=== PATIENT | female | born 1955 | race Caucasian/White ===

== ENCOUNTER 2017-07-15 15:57 | Inpatient (IN) | payer SELFPAY, OTHER ==
[2017-07-15] MEDS ORDERED: Ondansetron PF 4 MG/2 ML Vial IVP PRN (16:26)
[2017-07-15] MEDS ORDERED: Acetaminophen 325 MG TAB PO PRN (16:26)
[2017-07-15 16:46] VITALS: BMI 30.4
[2017-07-15] MEDS: Atorvastatin Calcium 40 MG TAB PO SCH (21:22)
[2017-07-15] MEDS: Enoxaparin Sodium 80 MG/0.8 ML SYRINGE SC SCH (21:23)
[2017-07-15] MEDS: Furosemide 40 MG TAB PO SCH (21:23)
--- NOTE | 2017-07-15 22:48 | HP-2 ---
DATE OF ADMISSION: 07/15/2017 Patient is seen at 1632. CODE STATUS: FULL. PRIMARY CARE PHYSICIAN: Dereje pastrana, none. ATTENDING PHYSICIAN: Dr. Wright. RESIDENT: Dr. Brittany Garcia, PGY3 HISTORIAN: Patient. CHIEF COMPLAINT: "Royston out of order." HISTORY OF PRESENT ILLNESS: This is a 62-year-old white female with past medical history significant for a recent diagnosis of CHF, right lower extremity DVT, PE, and hypertension who presents with a 1-day history of feeling poorly. The patient cannot tell me exactly how she was feeling, however , that she felt "out of order." The patient states that she has been taking Lasix with her potassium. She reports that she has been feeling slightly dry, so she has reduced her Lasix from 40 mg daily, which she was prescribed to 20 mg daily and at times not taking it. She also reports that she has been taking varying amounts of her potassium supplement that they gave her with her Lasix. She then presented to the [facility] ER who checked her labs and found her to have potassium of greater than 9. She was promptly administered D50 as well as insulin to reduce the level. Patient reports that prior to her discharge to this facility, she had a potassium of 5.3; however, we do not have access to these records. With regard to her CHF and recent diagnosis of PE, the patient states that she was hospitalized 2 weeks ago at the [facility] where she was diagnosed with CHF with an EF of less than 10% with a transesophageal echocardiogram. She also was diagnosed with a right lower extremity DVT and PE. She is currently taking Lovenox 80 mg twice a day for her PE. She states that she is only taking her Lasix for her CHF. She disagreed with the care there and states that she was discharged with a handful of medications including several different beta blockers and amiodarone, none of which she is currently taking. She states that she has set up an appointment to follow up with a jewel supervisor since discharge from that hospital. She states that she was diuresed about 20 pounds during that hospitalization. PAST MEDICAL HISTORY: 1. Congestive heart failure with an EF of less than 10%, diagnosed 2 weeks ago via [facility]. 2. Possible clots in ventricles? per patient 3. DVT right lower extremity. 4. Pulmonary embolism. 5. Hypertension. 6. Right shoulder dislocation in 2016. PAST SURGICAL HISTORY: Cardiac catheterization 2 weeks ago and AUDREY. ALLERGIES: No known drug allergies. MEDICATIONS: 1. Lasix 40 mg p.o. daily; however, the patient not taking at this dose. 2. Lovenox 80 mg subcutaneously b.i.d. 3. Potassium 20 mEq. The patient has been taking this in varying doses. FAMILY HISTORY: Noncontributory. SOCIAL HISTORY: Patient states that she smoked socially for a few years during college; however, has not smoked since. She denies any alcohol or drug use. She is unemployed. She is not , does not have any children. She states that she has an apartment in the [facility] area. She also has an advocate, her name is Angy Laws. Patient also notes that she has home health. REVIEW OF SYSTEMS: Ten-point review of systems was conducted. Pertinent positives are mentioned in the HPI, all others are negative. PHYSICAL EXAMINATION: VITAL SIGNS: Blood pressure 149/118, pulse 105, respirations 22, T-max 96.8, pulse ox 98% on room air, current weight 191 pounds. GENERAL: The patient is alert and oriented x4. She is well-developed, well- nourished, appropriately interactive during the interview and exam. EYES: Pupils are equally round and reactive. Extraocular muscles are intact. Conjunctivae within normal limits. Oropharynx moist without erythema. NECK: Supple, no lymphadenopathy, no thyromegaly. CARDIOVASCULAR: Regular rate and rhythm, no murmurs, gallops, clicks or rubs. Pedal pulses unable to palpate secondary to massive edema. RESPIRATIONS: Normal effort, no retractions. SKIN: Warm and dry, free of cyanosis. Lower extremities have some evidence of venous stasis lesions on her legs. ABDOMEN: Soft, nontender to palpation. Bowel sounds present. EXTREMITIES: No clubbing, cyanosis, 3+ pitting edema in bilateral lower extremities. MUSCULOSKELETAL: Full range of motion of all 4 extremities, ambulatory. NEUROLOGIC: No focal deficits. PSYCHIATRIC: Appropriate. LABORATORY DATA: From [facility]: White count 8.8, hemoglobin 12.8, hematocrit 40.1, platelets 349, sodium 127, potassium of greater than 9, chloride 110, bicarbonate 19, BUN 36, creatinine 0.7, glucose 117, albumin 3.4, total protein 7.4, AST 156, ALT 189, alkaline phosphatase 60, BNP of 2610. Troponin is 0.18, CK-MB of 2.8. EKG showed left axis deviation. T-wave peaking of V2-V4 rate of 102. ASSESSMENT AND PLAN: This is a 62-year-old female with: 1. Severe hyperkalemia, we will admit her to the telemetry unit. We will order a stat recheck of her potassium and EKG. We will observe her on telemetry overnight given her peak T waves and severe hyperkalemia of greater than 9. I discussed with her not taking potassium with every Lasix dose and that we will need to have a long discussion tomorrow about not readjusting her medications on her own without proper medical supervision. 2. Pulmonary embolus. I have requested records from [facility]. We will continue on her therapeutic Lovenox. 3. Congestive heart failure with reported fraction of 10%. She is not currently in exacerbation. I have started her on some Lasix for lower extremity swelling. She states that she has reduced and stopped the amount of Lasix she was taking. I have also started her on an HAYDER inhibitor, beta mark and statin. Patient states that she was discharged on these medications ; however, has not been taking them and she refuses to take them. She plans on following up with a jewel supervisor that she has found on her own accord. Patient has already told me that she will be refusing some of her medications during her stay. 4. Hyponatremia. The patient is not clinically symptomatic from hyponatremia. We will recheck this on a BMP, likely some lab derangements from prior severely elevated potassium. 5. Elevated liver function tests. We will have patient to obtain an outpatient followup for this potentially including a hepatitis panel and right upper quadrant ultrasound. 6. Deep vein thrombosis prophylaxis. The patient already has DVT, PE, we will continue her therapeutic Lovenox. DISPOSITION AND LENGTH OF STAY: One to two days. Symptomatic medications will be provided. History and physical exam as well as management was discussed with Dr. Wright. NILAY
[2017-07-15 22:57] LABS: ALT (SGPT) 174 U/L (8-55); AST (SGOT) 102 U/L (5-34); Albumin 2.9 g/dL (3.4-4.8); Alkaline Phosphatase 68 U/L (40-150); Anion Gap 13 mmol/L (10-20); BUN (Urea Nitrogen) 23 mg/dL (9.8-20.1); Bilirubin, Total 1.9 mg/dL (0.2-1.2); Calc. Creatinine Clearance 93 mL/min (70-130); Calcium 9.1 mg/dL (7.8-10.44); Carbon Dioxide 20 mmol/L (23-31); Chloride 107 mmol/L (98-107); Estimated GFR-MDRD 67; Glucose 129 mg/dL (80-115); Potassium 5.2 mmol/L (3.5-5.1); Protein, Total 6.9 g/dL (6.0-8.3); Sodium 135 mmol/L (136-145)
[2017-07-16] MEDS ORDERED: Furosemide 40 MG/4 ML VIAL SLOW IVP SCH (06:00)
--- NOTE | 2017-07-16 08:57 | PDOC.FM ---
- Subjective Subjective: Patient doing well this AM. No significant overnight events. She feels tired this morning but is cooperative and willing to get blood drawn to evaluate potassium level. - Objective MAR Reviewed: Yes Vital Signs & Weight: Vital Signs (12 hours) Temp Pulse Resp BP Pulse Ox 07/16/17 04:00 98.1 F 89 22 H 144/107 H 95 07/16/17 00:22 98.1 F 101 H 20 145/92 H 94 L 07/16/17 00:00 98.1 F 102 H 93 L Weight Weight 767.478 kg I&O: 07/15/17 07/16/17 07/17/17 06:59 06:59 06:59 Intake Total 240 Output Total 650 Balance -410 Result Diagrams: 07/15/17 22:05 EKG Reviewed by me: Yes Radiology Reviewed by me: Yes <Odalys Veras - Last Filed: 07/16/17 08:55> - Objective Vital Signs & Weight: Vital Signs (12 hours) Temp Pulse Resp BP Pulse Ox 07/16/17 07:50 98.1 F 92 20 138/99 H 97 07/16/17 04:00 98.1 F 89 22 H 144/107 H 95 07/16/17 00:22 98.1 F 101 H 20 145/92 H 94 L 07/16/17 00:00 98.1 F 102 H 93 L Weight Weight 767.478 kg I&O: 07/15/17 07/16/17 07/17/17 06:59 06:59 06:59 Intake Total 240 Output Total 650 Balance -410 Result Diagrams: 07/16/17 08:40 <Leobardo Mcguire - Last Filed: 07/16/17 11:26> Phys Exam - Physical Examination Constitutional: NAD HEENT: moist MMs Neck: supple Respiratory: no wheezing mild bibasilar rales Cardiovascular: RRR Gastrointestinal: soft, positive bowel sounds 2+ pitting edema up to level of knee Neurological: non-focal Psychiatric: A&O x 3 Skin: no rash <Odalys Veras - Last Filed: 07/16/17 08:55> Dx/Plan (1) Acute hyperkalemia Code(s): E87.5 - HYPERKALEMIA Status: Acute (2) CHF (congestive heart failure) Code(s): I50.9 - HEART FAILURE, UNSPECIFIED Status: Chronic QualifierTitle: Congestive heart failure type: systolic (3) Deep vein thrombosis (DVT) of distal vein of right lower extremity Code(s): I82.4Z1 - AC EMBLSM AND THOMBOS UNSP DEEP VEINS OF R DIST LOW EXTRM Status: Acute (4) Pulmonary embolism Code(s): I26.99 - OTHER PULMONARY EMBOLISM WITHOUT ACUTE COR PULMONALE Status : Acute (5) HTN (hypertension) Code(s): I10 - ESSENTIAL (PRIMARY) HYPERTENSION Status: Chronic - Plan Plan: 1. Severe hyperkalemia - Transfered from outside ER - Given insulin and D5 - Potassium as of 22:00 last night was 5.2 - Repeat AM potassium pending - EKG yesterday showed peaked t waves - 4 beats of v-tach overnight - Repeat EKG this AM 2. CHF with EF <10 - No evidence of acute exacerbation - Patient refusing to be treated for CHF - She is on lasix, lisinopril, and coreg 3. DVT of RLE - On therapeutic lovenox - Diagnosed several weeks ago 4. Pulmonary embolism - On therapeutic lovenox - Diagnosed several weeks ago 5. HTN - Continue home medications Dispo: Stable. Home today if K+ stable and no EKG changes. <Odalys Veras - Last Filed: 07/16/17 08:55> Attending Addendum - Attending Addendum I personally evaluated the patient and discussed the management with Dr. Veras. I agree with the History, Examination, Assessment and Plan documented above with any addition or exceptions noted below. Pt is doing well this morning. K levels have returned to normal. We have reviewed her EKG, T waves improved, no sign of worsening EKG with hyperkalemia, p waves present, QRS stable, no sinusoidal wave pattern. On conversation, pt. is dyspneic on conversation, suggestive of [facility] Class IV CHF. Plan is to obtain records from [place] to confirm prior findings, Cardiology consultation and CHF clinic referral, establish PCP locally to monitor.. Pt has made it clear that she wants to follow up with her line analyst regarding her CHF but is now willing to consider local care for now. <Leobardo Mcguire - Last Filed: 07/16/17 11:26>
[2017-07-16] MEDS ORDERED: Aspirin 81 mg Enteric Coated Tablet PO SCH (09:00)
[2017-07-16] MEDS ORDERED: Enoxaparin Sodium 40 MG/0.4 ML SYRINGE SC SCH (09:00)
[2017-07-16 09:33] LABS: Anion Gap 15 mmol/L (10-20); BUN (Urea Nitrogen) 22 mg/dL (9.8-20.1); Calc. Creatinine Clearance 832 mL/min (70-130); Carbon Dioxide 23 mmol/L (23-31); Chloride 107 mmol/L (98-107); Estimated GFR-MDRD 67; Glucose 124 mg/dL (80-115); Potassium 4.5 mmol/L (3.5-5.1); Sodium 140 mmol/L (136-145)
[2017-07-16] MEDS: Lisinopril 2.5 MG TAB PO SCH (11:44)
[2017-07-16] MEDS: Carvedilol 3.125 MG TAB PO SCH ×2 (11:45→17:58)
[2017-07-16] MEDS: Enoxaparin Sodium 80 MG/0.8 ML SYRINGE SC SCH ×2 (11:46→20:57)
[2017-07-16] MEDS: Furosemide 40 MG TAB PO SCH (11:47)
--- NOTE | 2017-07-16 20:22 | CON ---
DATE OF CONSULTATION: 07/16/2017 INDICATION FOR CONSULTATION: A 62-year-old female with congestive heart failure exacerbation. HISTORY OF PRESENT ILLNESS: This very unfortunate 62-year-old female who likely was diagnosed with cardiomyopathy 5 years ago and was seen in [facility], was advised to undergo an AICD implant at that time and refused to do so, and then did not follow up and then was released from their practice. She was recently in [place] apparently when in hotel for some type of event and noticed that she became increasingly short of breath and lower extremity edema and was taken to the emergency room by ambulance and workup at that time showed that she had bilateral pulmonary emboli with a right upper and lower lobe arterial emboli which had been extending into the upper and middle lobes. Also, she had a small left nonocclusive pulmonary emboli in the superior lingular left upper lobe branch. At that time, echocardiogram showed an ejection fraction of approximately 10% with significant dilatation of all four chambers. She also had a mobile mass in the right atrium at 3.4 x 1.4 cm with dilated IVC and elevated pulmonary artery pressures, pulmonary hypertension with a right ventricular systolic pressure 60 mmHg, and severe mitral valve regurgitation. Approximately 4 days later, she underwent transesophageal echocardiogram which showed 3 clots in the left ventricle, the largest up to 1 x 1.4 cm. She also had no evidence of left atrial thrombus and no evidence of clot in the right atrium and presently this is either dissolved or had been transferred to the pulmonary area. She had a cardiac catheterization which showed normal coronary arteries. She was given a LifeVest , but she refused to wear saying it weighs too much and she has been told the indications for the LifeVest and the consequences of what could happen if she did not wear the Vest. She also was given multiple medications on discharge, which she was not taking. She was discharged on Lasix, Bystolic, amiodarone, aspirin, Lovenox, losartan, and potassium. She has refused to take Xarelto. At that time she was seen in the [facility] Emergency Room. She had been taking Lasix, Lovenox, and potassium. She was not taking losartan, nor amiodarone, nor Bystolic. At this time, she appears to obviously has CHF exacerbation. Her BNP was significantly elevated at almost 7000 and she has severe lower extremity edema and obviously has dyspnea on any kind of minimal exertion, even trying to speak she becomes more short of breath. She has been noncompliant with medications, noncompliant with followups, and has refused to take the medical therapy that has been offered. She does not have a primary care physician nor does she have a mine safety director. She had said that she consider seeing a mine safety director up in [place] who may do some type of alternative medical treatment for her cardiomyopathy. PAST MEDICAL HISTORY: Significant for congestive heart failure, history of pneumonia, DVT. She has had these left atrial and left ventricular thrombus which is noted as above. She has had a right popliteal DVT. Otherwise, she has had no significant operations or illnesses. SOCIAL HISTORY: She is single. She has no children. She has no alcohol or tobacco abuse. FAMILY HISTORY: Noncontributory. ALLERGIES: None. MEDICATIONS: At this time includes atorvastatin 40 mg a day, Coreg 3.125 mg b.i.d., Lovenox 80 mg subcu, furosemide 40 mg b.i.d., and lisinopril 2.5 mg daily. REVIEW OF SYSTEMS: She wears glasses. She has had shortness of breath and dyspnea on exertion and lower extremity edema. She denies any chest pain. Otherwise, 12-point review of systems is unremarkable. PHYSICAL EXAMINATION: GENERAL: Reveals a middle-aged female. VITAL SIGNS: Blood pressure 130/99, heart rate is 92. She is afebrile, respiratory rate 20. HEENT: Shows head to be normocephalic and atraumatic. Carotid pulses are present. There were no bruits. CHEST: Clear. I did not hear any significant rales, rhonchi, or wheezing at this time. CARDIOVASCULAR: She has an S1 and S2 and second heart sounds appears to be somewhat split. There were no significant murmurs noted. She has somewhat of a slight heat to the left parasternal border. Otherwise, there were no significant abnormalities appreciated. ABDOMEN: Soft and nontender. EXTREMITIES: Showed 3+ lower extremity edema to above the knees and also in the lower sacral area also she has some edema. NEUROLOGIC: The patient appears to be having focal motor deficits. SKIN: Warm and dry. Her EKG shows a sinus rhythm with a left bundle branch block. She does have some what appears to be QT prolongation. At some point in time, she did describe confused, but this in the history of present illness. She did try about 5 years ago, had been placed on Aldactone and it was found apparently unresponsive in the parking lot and presumably may have had sudden cardiac . At that time, she had been resuscitated. She was cooled down in the hospital and at that time it was advised she undergo an implantation of an AICD which she refused to do. IMPRESSION: 1. 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 She will absolutely need to be on Lovenox injections. I did explain to her due to the fact that she has had left ventricular thrombus as well as pulmonary emboli. She will need to be a minimum of anticoagulation for at least 6 months. She does not want to take Xarelto and is continuing to give herself injections. This may not be a good alternative long-term certainly given her severe decrease in left ventricular systolic function. If this is not improved, then I would suggest she will be on lifelong anticoagulation. 2. Pulmonary emboli, these will be dealt with by the primary service. This is most likely a result of her right popliteal deep vein thrombosis to the right atrium and then pulmonary emboli. She is obviously at risk for having further deep vein thrombosis and anticoagulation is in order. She may also need to consider possible IVC filter. 3. History of nonsustained ventricular tachycardia. She had a LifeVest given to her in [place], but she refuses to wear. She has had nonsustained ventricular tachycardia since being in the hospital here. She has had 15 beats of NSVTACH, it may be best to start her back on amiodarone 200 mg a day to see if we can suppress some of the ventricular tachycardia. We would suggest if she be seen by the banana grader. 4. History of a cerebrovascular accident in the past according to the patient, but did not see any indication of this. 5. Some history of recent EKG of long QT. For that I have stopped her Zofran which also can increase her QT and may be causing further ventricular tachycardia or torsades. Overall, she is in a very difficult situation and her group home outlook is not very good especially with a history of having an untreated cardiomyopathy for at least probably 5 years and not being willing to undergo some of the medical treatment as indicated nor does she want to be implanted with a defibrillator. I have explained to her the risk of sudden cardiac and continue to try to treat her medically. She will need to be diuresed and then continue the beta blockers as well as the HAYDER inhibitors and other medications. If she becomes somewhat improved, we can certainly consider starting her on Entresto, but have to hold lisinopril for at least 36 hours. ADDENDUM: The patient is a 62-year-old female. I have reviewed her records from the hospital in [place] from [facility] and I also discussed all the options with this lady about AICD. Total time spent with this patient was approximately 1-1/2 hours going over the details of her illness and the understanding of her problems as well as review of the records. NILAY
[2017-07-16] MEDS: Atorvastatin Calcium 40 MG TAB PO SCH (21:03)
[2017-07-16] MEDS: Amiodarone 200 MG TAB PO SCH (21:04)
--- NOTE | 2017-07-16 21:59 | EKG ---
Test Reason : Blood Pressure : / mmHG Vent. Rate : 095 BPM Atrial Rate : 095 BPM P-R Int : 160 ms QRS Dur : 114 ms QT Int : 400 ms P-R-T Axes : 058 -44 131 degrees QTc Int : 502 ms Normal sinus rhythm Possible Left atrial enlargement Left axis deviation Incomplete left bundle branch block Left ventricular hypertrophy with repolarization abnormality Prolonged QT Abnormal ECG When compared with ECG of 15-JUL-2017 17:46, (Unconfirmed) No significant change was found Confirmed by MELECIO ALVARADO ([id number]) on 07/16/2017 9:58:51 PM Referred By: EITAN-YVETTE Confirmed By:MELECIO ALVARADO
--- NOTE | 2017-07-16 22:01 | EKG ---
Test Reason : ROUTINE Blood Pressure : / mmHG Vent. Rate : 102 BPM Atrial Rate : 102 BPM P-R Int : 156 ms QRS Dur : 114 ms QT Int : 382 ms P-R-T Axes : 057 -48 111 degrees QTc Int : 497 ms Sinus tachycardia Possible Left atrial enlargement Left axis deviation Left ventricular hypertrophy with repolarization abnormality Cannot rule out Septal infarct , age undetermined Abnormal ECG No previous ECGs available Confirmed by MELECIO ALVARADO ([id number]) on 07/16/2017 10:01:19 PM Referred By: Confirmed By:MELECIO ALVARADO
[2017-07-17] MEDS: Furosemide 40 MG/4 ML VIAL SLOW IVP SCH ×2 (06:01→13:28)
--- NOTE | 2017-07-17 07:57 | PDOC.FM ---
- Subjective Subjective: Patient doing well this AM. No significant overnight events. She reports she is diuresing well. She did refuse her medications except lasix and Lisinopril this AM. Patient states that she wants to establish at our clinic, and would essentially like a letter stating she is establishing and we have accepted as patient. - Objective MAR Reviewed: Yes Vital Signs & Weight: Vital Signs (12 hours) Temp Pulse Resp BP Pulse Ox 07/17/17 07:17 97.7 F 76 20 139/94 H 95 07/17/17 04:00 98.5 F 95 18 129/91 H 96 07/17/17 00:00 97.4 F L 103 H 22 H 138/95 H 95 Weight Weight 84.368 kg I&O: 07/16/17 07/17/17 07/18/17 06:59 06:59 06:59 Intake Total 240 740 Output Total 650 1350 Balance -410 -610 Result Diagrams: 07/16/17 08:40 EKG Reviewed by me: Yes Radiology Reviewed by me: Yes <Odalys Veras - Last Filed: 07/17/17 09:21> - Objective Vital Signs & Weight: Weight Weight 80.739 kg Result Diagrams: 07/20/17 04:47 07/20/17 04:47 <Leobardo Mcguire - Last Filed: 08/30/17 15:47> Phys Exam - Physical Examination Constitutional: NAD HEENT: moist MMs Neck: supple Respiratory: no wheezing, clear to auscultation bilateral Cardiovascular: RRR, no significant murmur Gastrointestinal: soft, no distention 2+ pitting edema to level of knees Neurological: non-focal, moves all 4 limbs Psychiatric: A&O x 3 Skin: no rash, cap refill <2 seconds <Odalys Veras - Last Filed: 07/17/17 09:21> Dx/Plan (1) Acute hyperkalemia Code(s): E87.5 - HYPERKALEMIA Status: Acute (2) CHF (congestive heart failure) Code(s): I50.9 - HEART FAILURE, UNSPECIFIED Status: Chronic QualifierTitle: (3) Deep vein thrombosis (DVT) of distal vein of right lower extremity Code(s): I82.4Z1 - AC EMBLSM AND THOMBOS UNSP DEEP VEINS OF R DIST LOW EXTRM Status: Acute (4) Pulmonary embolism Code(s): I26.99 - OTHER PULMONARY EMBOLISM WITHOUT ACUTE COR PULMONALE Status : Acute (5) HTN (hypertension) Code(s): I10 - ESSENTIAL (PRIMARY) HYPERTENSION Status: Chronic - Plan Plan: 1. Severe hyperkalemia, resolved - Transfered from outside ER - Given insulin and D5 and calcium gluconate in outside ER - Potassium improved to 4.5 yesterday - EKG yesterday showed peaked t-waves; repeat EKG improved 2. CHF with EF <10% with left ventricular thrombus - No evidence of acute exacerbation - She is on lasix, lisinopril, and coreg - Cardiology consulted; appreciate recs - Cards discussed AICD with patient at length; patient refuses at this time - Recommend optimizing medical management - Will need 6 months of anticoagulation therapy - Patient wanting to establish at our clinic - Echo this AM per cards 3. DVT of RLE - On therapeutic lovenox - Does not want to take xeralto - Diagnosed several weeks ago 4. Pulmonary embolism - On therapeutic lovenox - Does not want to take xeralto - Diagnosed several weeks ago - May need to consider IVC filter per cards 5. HTN - Continue home medications 6. Non-sustained Vtach - Patient has life vest that she does not use Dispo: Guarded. Anticipate discharge home today if patient not desiring any cardiac interventions. Patient desires to establish at [facility]. <Odalys Veras - Last Filed: 07/17/17 09:21> Attending Addendum - Attending Addendum Date/Time: 08/30/17 [id number] I personally evaluated the patient and discussed the management with Dr. Jones. I agree with the History, Examination, Assessment and Plan documented above with any addition or exceptions noted below. Extensive conversation held with patient discussing rationale for treatment and severity of her condition. Pt. very hesitant to do much more than she's already agreed to. Has an advocate also trying to convince her of the benefit of following current practices. Will consider B-mark therapy and will have Life-vest brought from home. Was seen at [facility] previously with similar recommendations, which she apparently didn't follow. <Leobardo Mcguire - Last Filed: 08/30/17 15:47>
[2017-07-17] MEDS: Lisinopril 2.5 MG TAB PO SCH (09:07)
[2017-07-17] MEDS: Enoxaparin Sodium 80 MG/0.8 ML SYRINGE SC SCH ×2 (09:08→21:52)
[2017-07-17] MEDS: Amiodarone 200 MG TAB PO SCH (09:08)
[2017-07-17] MEDS: Carvedilol 3.125 MG TAB PO SCH ×2 (09:08→17:20)
--- NOTE | 2017-07-17 12:28 | ADD-PRG ---
ADDENDUM This is an unfortunate 62-year-old female. I reviewed her records further from 2012, she had sudden cardiac with associated hypertension and at cardiac catheterization was found to have normal coronary arteries, at that time her left ventricle ejection fraction was 20%-25%. It is now 10%. At that time, she also refused an AICD. Even after sudden cardiac , she has refused to take her medications. At this time, she has also been found to have a thrombus in the left ventricle, thrombus in the right atrium. All four chambers were significantly dilated. She also has had multiple PEs. She has had a DVT noted in the popliteal vein. At this time, she is refusing Xarelto, wants to continue taking Lovenox injections. She has also refused to be started on the amiodarone and also refuses a defibrillator. She was given a LifeVest in [place], which she also refuses to wear. This ia an unfortunate very noncompliant patient, there is very little more that I could do to help this patient if she is unwilling to follow the advice that we are giving her regarding medications and device implantation that may actually prevent further episodes of sudden cardiac , which occurred 5 years ago on 2012. She was seen at [facility] and was evaluated at that time, the cardiac catheterization did show normal coronary arteries reported in the chart, but she remains very obstinate about not taking medication and not proceeding with AICD implant or even to wear the LifeVest. NILAY
[2017-07-17 19:10] LABS: Anion Gap 15 mmol/L (10-20); BUN (Urea Nitrogen) 22 mg/dL (9.8-20.1); Calc. Creatinine Clearance 96 mL/min (70-130); Calcium 8.9 mg/dL (7.8-10.44); Carbon Dioxide 27 mmol/L (23-31); Chloride 102 mmol/L (98-107); Estimated GFR-MDRD 71; Glucose 116 mg/dL (80-115); Sodium 140 mmol/L (136-145)
[2017-07-18 05:52] LABS: Hemoglobin 12.2 g/dL (12.0-16.0); Platelet Count 359 thou/uL (130-400)
[2017-07-18 06:18] LABS: Anion Gap 10 mmol/L (10-20); BUN (Urea Nitrogen) 20 mg/dL (9.8-20.1); Calc. Creatinine Clearance 107 mL/min (70-130); Calcium 8.6 mg/dL (7.8-10.44); Carbon Dioxide 27 mmol/L (23-31); Cardiac Risk 4.3 (Less than 4.5); Chloride 106 mmol/L (98-107); Cholesterol 95 mg/dl (< 200 Desired); Estimated GFR-MDRD 84; Glucose 109 mg/dL (80-115); HDL Cholesterol 22 mg/dL (>60 Neg Risk); LDL Cholesterol, Calculated 61 mg/dL; Potassium 3.8 mmol/L (3.5-5.1); Sodium 139 mmol/L (136-145); Triglycerides 62 mg/dL (Less than 150)
[2017-07-18] MEDS: Enoxaparin Sodium 80 MG/0.8 ML SYRINGE SC SCH (08:08)
[2017-07-18] MEDS: Nebivolol HCl 2.5 MG TAB PO SCH (08:09)
[2017-07-18] MEDS: Lisinopril 2.5 MG TAB PO SCH (08:09)
[2017-07-18] MEDS: Furosemide 20 MG TAB PO SCH ×2 (08:10→14:38)
--- NOTE | 2017-07-18 08:53 | PDOC.FM ---
- Subjective Subjective: Patient doing well this AM. She did have 9 beats of v-tach this morning and has had intermittent episodes of vtach since hospitalization. Dr. Lou discussed need for amiodarone and AICD placement at length with patient. However, patient denies that this conversation ever happened. She continues to refuse medications. She is under the impression that she should stay on IV lasix until she is entirely diuresed. It was explained that we can transition over to PO lasix as we prepare her for d/c home. She requested to personally speak to Dr. Mcguire. - Objective MAR Reviewed: Yes Vital Signs & Weight: Vital Signs (12 hours) Temp Pulse Resp BP BP Pulse Ox 07/18/17 08:09 75 126/83 07/18/17 07:20 97.6 F 75 20 126/83 95 07/18/17 04:00 97.7 F 100 21 H 136/99 H 94 L 07/18/17 00:00 97.6 F 97 20 130/78 94 L Weight Weight 81.556 kg I&O: 07/17/17 07/18/17 07/19/17 06:59 06:59 06:59 Intake Total 740 881 Output Total 1350 5200 Balance -610 -8594 Result Diagrams: 07/18/17 05:18 07/18/17 05:18 EKG Reviewed by me: Yes Radiology Reviewed by me: Yes <Odalys Veras - Last Filed: 07/18/17 11:45> - Objective Vital Signs & Weight: Weight Weight 80.739 kg Result Diagrams: 07/20/17 04:47 07/20/17 04:47 <Leobardo Mcguire - Last Filed: 08/30/17 16:24> Phys Exam - Physical Examination Constitutional: NAD HEENT: moist MMs Neck: supple bibasilar crackles Cardiovascular: RRR, no significant murmur Gastrointestinal: soft, non-tender, positive bowel sounds Musculoskeletal: pulses present 2+ pitting edema to level of knee Neurological: non-focal, moves all 4 limbs Psychiatric: normal affect Skin: cap refill <2 seconds <Odalys Veras - Last Filed: 07/18/17 11:45> Dx/Plan (1) Acute hyperkalemia Code(s): E87.5 - HYPERKALEMIA Status: Acute (2) CHF (congestive heart failure) Code(s): I50.9 - HEART FAILURE, UNSPECIFIED Status: Chronic QualifierTitle: (3) Deep vein thrombosis (DVT) of distal vein of right lower extremity Code(s): I82.4Z1 - AC EMBLSM AND THOMBOS UNSP DEEP VEINS OF R DIST LOW EXTRM Status: Acute (4) Pulmonary embolism Code(s): I26.99 - OTHER PULMONARY EMBOLISM WITHOUT ACUTE COR PULMONALE Status : Acute (5) HTN (hypertension) Code(s): I10 - ESSENTIAL (PRIMARY) HYPERTENSION Status: Chronic - Plan Plan: 1. Severe hyperkalemia, resolved - Transfered from outside ER - Given insulin and D5 and calcium gluconate in outside ER - Potassium 3.8 this AM 2. CHF with EF <10% with left ventricular thrombus - No evidence of acute exacerbation - She is on lasix, lisinopril, and nevibolol - Cardiology consulted; appreciate recs - Cards discussed AICD with patient at length; patient refuses at this time - Recommend optimizing medical management - Will need 6 months of anticoagulation therapy - Patient wanting to establish at our clinic - Echo showed persistent left atrium thrombus per cards - Add 20 mEq K to medication regimen daily 3. DVT of RLE - On therapeutic lovenox - Does not want to take xeralto - Diagnosed several weeks ago 4. Pulmonary embolism - On therapeutic lovenox - Does not want to take xeralto - Diagnosed several weeks ago - May need to consider IVC filter per cards 5. HTN - Continue home medications 6. Non-sustained Vtach - Patient has life vest that she does not use Dispo: Guarded. Anticipate discharge home today on oral medications. <Odalys Veras - Last Filed: 07/18/17 11:45> Attending Addendum - Attending Addendum Date/Time: 08/30/17 4145 I personally evaluated the patient and discussed the management with Dr. Veras. I agree with the History, Examination, Assessment and Plan documented above with any addition or exceptions noted below. Another extensive discussion (45 min) of need for complete care in order to maximize her quality of life and expectancy. V-tach particularly ominous sign and need for antiarrhythmic like amiodarone stressed. Pt. seems to understand now and is willing to try at this point. Also, lifevest value as temporizing measure prior to AICD also stressed. Pt. considering this also. Was supposed to have had it brought but hasn't yet. Also stressed the need for anticoagulation and that Lovenox is not necessarily ideal nor economical as OP. If pt. continues to be intransigent, not much else to offer. She seems to be focused on resolving her pedal edema through IV diuresis. I have repeatedly stressed this will not resolve the issue in isolation and likely she will have some aspect of this permanently. <Leobardo Mcguire - Last Filed: 08/30/17 16:24>
[2017-07-18] MEDS: Oxymetazoline HCl 0.05% ( 15 ML ) NASAL SCH ×2 (14:38→21:03)
[2017-07-19] MEDS: Enoxaparin Sodium 80 MG/0.8 ML SYRINGE SC SCH ×3 (01:55→21:06)
--- NOTE | 2017-07-19 07:08 | PDOC.FM ---
- Subjective Subjective: Patient doing well this AM. She has been non-compliant with medications to include therapeutic lovenox being used for DVT/PE/thrombus in heart. She is refusing to take potassium and would rather get potassium through diet by drinking V8 juice. Nurses report that she is not abiding by fluid restrictions, and they have been unable to accurately monitor I&O's, b/c she is not letting them know when she uses the restroom. The hat has only been emptied once as far as they know. Life vest is in the room, but patient is refusing to wear it. - Objective MAR Reviewed: Yes Vital Signs & Weight: Vital Signs (12 hours) Temp Pulse Resp BP BP Pulse Ox 07/19/17 03:39 97.4 F L 87 135/97 H 96 07/18/17 20:00 98.5 F 101 H 20 131/100 H Weight Weight 81.556 kg I&O: 07/18/17 07/19/17 07/20/17 06:59 06:59 06:59 Intake Total 881 Output Total 5200 Balance -4319 Result Diagrams: 07/18/17 05:18 07/18/17 05:18 EKG Reviewed by me: Yes Radiology Reviewed by me: Yes <Odalys Veras - Last Filed: 07/19/17 07:57> - Objective Vital Signs & Weight: Vital Signs (12 hours) Temp Pulse Resp BP BP Pulse Ox 07/19/17 08:40 98.1 F 99 20 150/101 H 93 L 07/19/17 03:39 97.4 F L 87 135/97 H 96 Weight Weight 80.739 kg I&O: 07/18/17 07/19/17 07/20/17 06:59 06:59 06:59 Intake Total 881 Output Total 5200 Balance -4319 Result Diagrams: 07/19/17 07:32 07/19/17 07:32 <Leobardo Mcguire - Last Filed: 07/19/17 12:19> Phys Exam - Physical Examination Constitutional: NAD HEENT: moist MMs Neck: supple Respiratory: no wheezing Bibasilar crackles Cardiovascular: RRR, no significant murmur Gastrointestinal: soft, no distention 2+ pitting edema to level of knee bilaterally Neurological: non-focal, moves all 4 limbs Psychiatric: A&O x 3 Skin: cap refill <2 seconds <Odalys Veras - Last Filed: 07/19/17 07:57> Dx/Plan (1) Acute hyperkalemia Code(s): E87.5 - HYPERKALEMIA Status: Acute (2) CHF (congestive heart failure) Code(s): I50.9 - HEART FAILURE, UNSPECIFIED Status: Chronic QualifierTitle: Congestive heart failure type: systolic (3) Deep vein thrombosis (DVT) of distal vein of right lower extremity Code(s): I82.4Z1 - AC EMBLSM AND THOMBOS UNSP DEEP VEINS OF R DIST LOW EXTRM Status: Acute (4) Pulmonary embolism Code(s): I26.99 - OTHER PULMONARY EMBOLISM WITHOUT ACUTE COR PULMONALE Status : Acute (5) HTN (hypertension) Code(s): I10 - ESSENTIAL (PRIMARY) HYPERTENSION Status: Chronic - Plan Plan: 1. Severe hyperkalemia, resolved - Transfered from outside ER - Given insulin and D5 and calcium gluconate in outside ER 2. CHF with EF <10% with left ventricular thrombus - She is on lasix, lisinopril, and nevibolol - Cardiology consulted; appreciate recs - Cards discussed AICD with patient at length; patient refuses at this time - Recommend optimizing medical management - Will need 6 months of anticoagulation therapy - Patient wanting to establish at our clinic - Echo showed persistent left atrium thrombus per cards - Add 20 mEq K to medication regimen daily; patient refusing to take - Patient has agreed to take amiodarone after long discussion - Patient refusing to wear life vest - Patient refusing therapeutic lovenox 3. DVT of RLE - On therapeutic lovenox - Does not want to take xeralto - Diagnosed several weeks ago 4. Pulmonary embolism - On therapeutic lovenox - Does not want to take xeralto - Diagnosed several weeks ago - May need to consider IVC filter per cards 5. HTN - Continue home medications 6. Non-sustained Vtach - Patient has life vest that she does not use; she has agreed to have it brought to hospital Dispo: Guarded. Anticipate discharge home today on oral medications. <Odalys Veras - Last Filed: 07/19/17 07:57> Attending Addendum - Attending Addendum I personally evaluated the patient and discussed the management with [ Rito] I agree with the History, Examination, Assessment and Plan documented above with any addition or exceptions noted below. CHF with EF <10%: Patient to continue on Nebivolol, Lisinopril, Lasix, and Amiodarone for treatment of CHF and ventricular tachycardia. Patient refusing potassium supplementation. Will consult security orderly regarding potassium supplementation in diet. Plan for enrollment in CHF outpatient clinic. They can monitor fluid status and potassium level. Patient to be evaluated by inpatient cardiac rehab team. Stressed importance of fluid restriction. Patient did have friend bring Life Vest, but has yet to wear it. Will try to trouble shoot getting around with walker and Life Vest. DVT/PE/Ventricular thrombus: Continue therapeutic lovenox. Will need for a period of at least 6 months. <Leobardo Mcguire - Last Filed: 07/19/17 12:19>
[2017-07-19] MEDS ORDERED: Potassium Chloride 20 MEQ TAB PO SCH (08:00)
[2017-07-19 08:12] LABS: #Basophils 0.1 thou/uL (0.0-0.2); #Eosinphils 0.3 thou/uL (0.0-0.7); #Lymphocytes 1.5 thou/uL (1.20-3.40); #Monocytes 0.6 thou/uL (0.11-0.59); #Neutrophils 5.6 thou/uL (1.40-6.50); %Eosinophils 3.9 % (0.0-10.0); %Lymphocytes 19.1 % (21.0-51.0); %Monocytes 6.7 % (0.0-10.0); %Neutrophils 69.3 % (42.0-75.0); Hemoglobin 12.7 g/dL (12.0-16.0); Mean Corpuscular Hemoglobin 31.7 pg (27.0-31.0); Mean Platelet Volume 6.9 fL (7.4-10.4); Platelet Count 391 thou/uL (130-400); RBC Distribution Width 15.4 % (11.5-14.5); Red Blood Cell (RBC) Count 4.02 mill/uL (4.20-5.40); White Blood Cell (WBC) Count 8.1 thou/uL (4.8-10.8)
[2017-07-19 08:35] LABS: ALT (SGPT) 66 U/L (8-55); AST (SGOT) 26 U/L (5-34); Albumin 2.9 g/dL (3.4-4.8); Alkaline Phosphatase 55 U/L (40-150); Anion Gap 13 mmol/L (10-20); BUN (Urea Nitrogen) 22 mg/dL (9.8-20.1); Bilirubin, Total 1.1 mg/dL (0.2-1.2); Calc. Creatinine Clearance 102 mL/min (70-130); Carbon Dioxide 26 mmol/L (23-31); Chloride 104 mmol/L (98-107); Estimated GFR-MDRD 80; Globulin 3.9 g/dL (2.4-3.5); Glucose 119 mg/dL (80-115); Potassium 4.5 mmol/L (3.5-5.1); Protein, Total 6.8 g/dL (6.0-8.3); Sodium 138 mmol/L (136-145)
[2017-07-19] MEDS: Furosemide 20 MG TAB PO SCH (08:48)
[2017-07-19] MEDS: Lisinopril 2.5 MG TAB PO SCH (08:52)
[2017-07-19] MEDS: Nebivolol HCl 2.5 MG TAB PO SCH (08:53)
[2017-07-19] MEDS: Amiodarone 200 MG TAB PO SCH (08:59)
[2017-07-19] MEDS: Furosemide 40 MG TAB PO SCH (14:24)
[2017-07-19 21:48] LABS: Anion Gap 11 mmol/L (10-20); BUN (Urea Nitrogen) 24 mg/dL (9.8-20.1); Calc. Creatinine Clearance 97 mL/min (70-130); Calcium 9.1 mg/dL (7.8-10.44); Carbon Dioxide 26 mmol/L (23-31); Chloride 105 mmol/L (98-107); Estimated GFR-MDRD 75; Glucose 132 mg/dL (80-115); Potassium 4.7 mmol/L (3.5-5.1); Sodium 137 mmol/L (136-145)
[2017-07-20 05:11] LABS: Hemoglobin 12.3 g/dL (12.0-16.0); Platelet Count 360 thou/uL (130-400)
--- NOTE | 2017-07-20 06:15 | PDOC.FM ---
- Subjective Subjective: Pt reports she is just trying to get up and make sure she will be able to do everything at home. She denies any acute events overnight. After talking with patient it sounds like she is not a fan of taking the amioderone. I discussed with her the need for it and to wear her life vest. She said she did not like the [facility] risks of taking amioderone. She also was wondering about the need for twice daily lovenox. I again discussed due to her clots she will need to take it twice a day. This is a patient who does a lot of research into her care and seems to have her own plan. I have advised her why we have prescribed what we have and why we think they are beneficial for her. I respect wanting to do what the patient is best for her. Be aware pt will not be very compliant with medication regimen likely. - Objective Vital Signs & Weight: Vital Signs (12 hours) Temp Pulse Resp BP Pulse Ox 07/20/17 03:48 97.7 F 90 20 132/98 H 96 07/19/17 19:46 98.1 F 92 18 113/88 96 07/19/17 19:45 98.1 F 92 18 96 Weight Weight 80.739 kg I&O: 07/18/17 07/19/17 07/20/17 06:59 06:59 06:59 Intake Total 881 600 Output Total 5200 400 Balance -4319 200 Result Diagrams: 07/20/17 04:47 07/20/17 04:47 <Rl Trent - Last Filed: 07/20/17 08:56> - Objective Vital Signs & Weight: Vital Signs (12 hours) Temp Pulse Resp BP BP BP Pulse Ox 07/20/17 10:02 91 129/96 H 07/20/17 07:37 96.5 F L 91 18 129/96 H 92 L 07/20/17 03:48 97.7 F 90 20 132/98 H 96 Weight Weight 80.739 kg I&O: 07/19/17 07/20/17 07/21/17 06:59 06:59 06:59 Intake Total 1100 Output Total 1000 Balance 100 Result Diagrams: 07/20/17 04:47 07/20/17 04:47 <Barron Morales - Last Filed: 07/20/17 12:36> Phys Exam - Physical Examination HEENT: PERRLA, moist MMs Neck: no nodes, supple, full ROM Respiratory: no wheezing, no rales bilateral crackles in the bases noted Cardiovascular: RRR, no significant murmur, no rub Gastrointestinal: soft, non-tender, no distention Musculoskeletal: edema present +2 pitting edema. Chronic venostasis in BLE Neurological: non-focal, normal sensation, moves all 4 limbs Psychiatric: normal affect, A&O x 3 Skin: no rash, normal turgor, cap refill <2 seconds <Rl Trent - Last Filed: 07/20/17 08:56> Dx/Plan (1) CHF (congestive heart failure) Code(s): I50.9 - HEART FAILURE, UNSPECIFIED Status: Chronic QualifierTitle: Congestive heart failure type: systolic (2) Pulmonary embolism Code(s): I26.99 - OTHER PULMONARY EMBOLISM WITHOUT ACUTE COR PULMONALE Status : Acute (3) Deep vein thrombosis (DVT) of distal vein of right lower extremity Code(s): I82.4Z1 - AC EMBLSM AND THOMBOS UNSP DEEP VEINS OF R DIST LOW EXTRM Status: Acute (4) HTN (hypertension) Code(s): I10 - ESSENTIAL (PRIMARY) HYPERTENSION Status: Chronic (5) Acute hyperkalemia Code(s): E87.5 - HYPERKALEMIA Status: Resolved - Plan Plan: 1. CHF with EF <10% with left ventricular thrombus - She is on lasix, lisinopril, and nevibolol -Pt did not want to be on coreg. Herself wanted nevibolol - Cardiology consulted; appreciate recs - Cards discussed AICD with patient at length; patient refuses at this time -Cardiac Rehab consulted, will get her set up with outpt managment. - Recommend optimizing medical management - Will need 6 months of anticoagulation therapy - Patient wanting to establish at our clinic - Echo showed persistent left atrium thrombus per cards - Add 20 mEq K to medication regimen daily; patient refusing to take - Patient likely does not want to continue amioderone medication after long discussion this morning. - Patient says she has everything to set up lifevest but is not wearing it at this time. - Patient refusing therapeutic lovenox 2. DVT of RLE - On therapeutic lovenox - Does not want to take xeralto - Diagnosed several weeks ago 3 Pulmonary embolism - On therapeutic lovenox - Does not want to take xeralto - Diagnosed several weeks ago - May need to consider IVC filter per cards 4. HTN - Continue home medications 5 Non-sustained Vtach - Patient has life vest that she does not use; she has agreed to have it brought to hospital 6. Severe hyperkalemia, resolved -K stable on BMP last night -Pt not taking potassium Pill. Dietary consulted to maybe give recs on foods to eat. - Transfered from outside ER - Given insulin and D5 and calcium gluconate in outside ER <Rl Trent - Last Filed: 07/20/17 08:56> Attending Addendum - Attending Addendum I personally evaluated the patient and discussed the management with Dr. Trent. I agree with the History, Examination, Assessment and Plan documented above with any addition or exceptions noted below. Patient admitted with multiple active and acute medical conditions including pulmonary embolism, thrombus in the LA, and multiple runs of Vtach. She has been evaluated by cardiology, and between their team and our team, we have been unable to convince her to opt for maximal medical therapy. She has stopped Amiodarone, despite knowing its indication and the risks of not being on the medication. She reports that she would rather wear her LifeVest that is in the room, but she is yet to put it on. She refuses oral anticoagulation for her multiple clots, and instead wishes to go home on Lovenox injections. We will augment her dose to 1.5mg/kg daily to hopefully increase compliance. We had a very lengthy discussion with patient today about our recommendations regarding her medical care, as well as her desires to decline therapy and why. This conversation occurred with her patient nursing care attendant listening on the cell phone. After discussing that her best option going forward if she declines medication is to wear LifeVest and take Lovenox injections, we have indicated to her that there is no further reason to keep her in the hospital. Patient initially disagreed with discharge as she reports she is unable to "dress myself " and needs things set up for her outpatient. I indicated to her that CM has been involved in her care and that we were in the process of setting up outpatient HF clinic as well as potential HH therapy, but those would not hinder her discharge. Her patient nursing care attendant was on board with our plan and helped convince the patient that he and other individuals would be able to care for her in the next few days until those ancillary services can be set up. She at that time agreed to be discharged and further mgmt as outpatient. Of note, patient has been observed by multiple providers as able to ambulate around the room without difficulty. <Barron Morales - Last Filed: 07/20/17 12:36>
[2017-07-20] MEDS: Lisinopril 2.5 MG TAB PO SCH (10:02)
[2017-07-20] MEDS: Nebivolol HCl 2.5 MG TAB PO SCH (10:03)
[2017-07-20] MEDS: Amiodarone 200 MG TAB PO SCH (10:04)
[2017-07-20] MEDS: Furosemide 40 MG TAB PO SCH ×2 (10:06→14:30)
[2017-07-20] MEDS: Enoxaparin Sodium 80 MG/0.8 ML SYRINGE SC SCH (10:12)
[2017-07-20] MEDS ORDERED: Enoxaparin Sodium 120 MG/0.8 ML SYRINGE SC SCH (10:30)
--- NOTE | 2017-07-20 11:17 | PDOC.CTH ---
<AlondraMaryjane - Last Filed: 07/20/17 11:47> Cardiology Progress Note - Subjective The pt seen and examined. No overnight events. No cardiac complaints. She has the LifeVest at bedside, but the battery needs to be charged. She stated she is willing to wear the LifeVest soon as possible so that she can go home - Objective Vital Signs Temp Pulse Resp BP BP BP Pulse Ox 07/20/17 10:02 91 129/96 H 07/20/17 07:37 96.5 F L 91 18 129/96 H 92 L 07/20/17 03:48 97.7 F 90 20 132/98 H 96 Weight 178 lb 07/19/17 07/20/17 07/21/17 06:59 06:59 06:59 Intake Total 1100 Output Total 1000 Balance 100 - Physical Examination General/Neuro: alert & oriented x3 Neck: no JVD present Lungs: CTA Heart: RRR Abdomen: soft Extremities: other: (2-3 pitting bLE edema) - Labs Result Diagrams: 07/20/17 04:47 07/20/17 04:47 - Assessment/Plan 1. Non-ischemic CMY - EF 10-12%; The pt administered HAYDER, BBlocker, and Lovenox today; The pt voiced she would like to wear LifeVest which is at bedside and the battery need to be charged; 2. Chronic systolic HF - Per the pt's report, her legs are less swelling this AM ; on Lasix 80mg PO, BBlocker and HAYDER; cont. monitor 3. Thrombus in Lt ventricular, Hx of PEs, Bilat. popleteal DVTs - On lovenox; the pt refused Xarelto; consider IVC filter if the pt agree? ; cont. monitor 4. Hx of NSVT and hx of cardiac arrest in 2012 - The pt refused to take amiodarone this AM; Lifevest at bedside; she needs LifeVest Education (Thank you very much for CHF service for your help!) 5. HTN - stable with current medication; cont. monitor 6. non-complaint medication regiment MAR reviewed Review of Systems - Review of Systems Constitutional: reports: no symptoms reported EENTM: reports: no symptoms reported Respiratory: reports: no symptoms reported Cardiac (ROS): reports: no symptoms reported ABD/GI: reports: no symptoms reported : reports: no symptoms reported <Chaparrita Lou - Last Filed: 07/20/17 17:35> Cardiology Progress Note - Objective Vital Signs Temp Pulse Resp BP BP Pulse Ox 07/20/17 16:07 98.1 F 87 20 126/85 95 07/20/17 11:52 98 20 134/86 94 L 07/20/17 10:02 91 129/96 H 07/20/17 07:37 96.5 F L 91 18 129/96 H 92 L Weight 178 lb 07/19/17 07/20/17 07/21/17 06:59 06:59 06:59 Intake Total 1100 Output Total 1000 Balance 100 - Labs Result Diagrams: 07/20/17 04:47 07/20/17 04:47 - Assessment/Plan Pt. seen and eval. by me. The Life-vest sales representative metals is in the room at this time also. She seems agreeable to wear the vest. She is still not agreeable with my medication suggestions. It would be better for her to take coreg instead of Bystolic due to the interaction of Bystolic with the Amiodarone. I agree with the A/P by the STRAIGHT LINE EDGER. Chest clear, RRR. No episodes of NSVtach today but yesterday she had a 6 beat run. She has a very poor [place] [facility] prognosis. I have little more to offer her if she is noncompliant with my suggestions. I will sign off. If she is not willing to cooperate with my medical suggestions in regards to her cardiomyopathy and CHF then I suggest she follow up with someone that she feels will be more in line with her own suggestions. I will sign off.
[2017-07-20 16:35] VITALS: BP 126/85; TEMP 98.1
[2017-07-21] MEDS ORDERED: Enoxaparin Sodium 120 MG/0.8 ML SYRINGE SC SCH (09:00)
--- NOTE | 2017-07-21 14:49 | DIS-2 ---
DATE OF ADMISSION: 07/15/2017 DATE OF DISCHARGE: 07/20/2017 ADMITTING ATTENDING: eMlvin Wright M.D. DISCHARGE ATTENDING: Barron Morales MD CONSULTS: Cardiology, Dr. Lou. PROCEDURES: None. IMAGING: She did get an echocardiogram, which showed ejection fraction of 10% to 12%. Left ventricu lar size severely increased left ventricular thrombus noted at the apex 1.3 cm attached apex, but karl ewhat mobile. Left atrium is moderately to severely dilated, moderately enlarged right atrium size, severe mitral regurg present, and moderate to severe tricuspid regurg. PRIMARY DIAGNOSES: 1. Chronic heart failure with ejection fraction of 10% to 12% with left ventricular thrombosis. 2. Deep venous thrombosis of right lower extremity. 3. Pulmonary embolism. 4. Hypertension. 5. Nonsustained ventricular tachycardia. 6. Severe hyperkalemia. DISCHARGE MEDICATIONS: Include: 1. Tylenol 650 mg every 4 hours as needed. 2. Lovenox 120 mg subcutaneously once daily. 3. Furosemide (Lasix) 80 mg oral at 9:00 a.m. and 1400. 4. Lisinopril 2.5 mg oral daily. 5. Nebivolol 2.5 mg oral daily. 6. Potassium chloride 20 mEq twice daily. DISCONTINUED MEDICATIONS: Lasix 40 mg twice daily and Lovenox 80 mg every 12 hours was discontinued as well. HISTORY OF PRESENT ILLNESS AND BRIEF HOSPITAL COURSE: This is a 62-year-old female with a past medic al history of recent diagnosis of CHF, right lower extremity DVT and PE, who came in that she felt ou t of order. She has been recently taking Lasix 40 mg daily. She also reports that she has been taki ng very much of her potassium supplements they gave her, had not been taking it lately. She went to [facility] ER, she was found to have potassium of 9. She was admitted and administered D50 and given in sulin as well to reduce the level. She was also given calcium gluconate, but when she got here, her potassium was 5.3. Over the course of the next few days, her potassium was drop to 4.5 the next day on the 8th. From that her potassium would be fine and ranging in the 4s. During this time, we get t he echocardiogram report, which you can see above, which shows the bad ejection fraction. We at this time consulted Dr. Lou, who at this time discussed with her about needing anticoagulation for the t hrombus found in her ventricle and for the pulmonary filter. At this time, she discussed with her us ing Xarelto, the patient did not want to take Xarelto, but wanted to inject herself with Lovenox that was the only medication she would take. At this time, we continued lisinopril and the Lasix. We wo uld increase her Lasix dose while here. We wanted to start her on Coreg, but the patient said that s he would rather take nebivolol as her beta mark, so we started her on nebivolol as well. It shoul d be noted that this patient seems to be very intent to her own research and makes her own choices ab out her patient care. It should be noted that she multiple times would refuse medications, would not follow recommendations that were given from us. At one time, we decided for all her multiple clots, she needs to be on b.i.d. dosing and therapeutic Lovenox, but multiple times she refused this. At o ne point, she told me that she wanted to just be on one time a day dosage, we put her on therapeutic dosing one time a day at 120 mg, and then she said that she only wanted to take 80 mg once a day, whi ch was not therapeutic dose. I again fully discussed the risks of doing this with her. Also during this visit of Dr. Lou, she would have multiple episodes of nonsustained V-tach. Dr. Lou discussed with her about the use of amiodarone and had discussions with her as well. She said she did not want to take amiodarone due to the long-term risks and the side effects of amiodarone. Discussed with he r that we are using amiodarone for the short-term and to prevent , she fully understood, but renetta korina "I'm refusing amiodarone at this time." She had already had a LifeVest, but she was not wearing it , discussed with her the need to wear. On the date of discharge, we got her to the charge the LifeVe st and said she would wear it and discussed with her that she needs to wear her LifeVest at all times . Also, when the patient came in with hyperkalemia as reported by outside ER of 9 since then resolve d. She multiple times refused her potassium pills that we put her on since she was on high dose of L asix, refused this and said that she would monitor her potassium on her own and get a diet controlled . It should be noted too that the patient has a patient advocate who multiple times agreed with our plan of care. Again, we gave recommendations to the patient for treatment, multiple treatments that she would refuse. Again, it is her decision to refuse these treatments, but it should be noted that we recommended that she will be on therapeutic dosing of Lovenox and recommended that she take amioda yesi, both of which she refused. On day of discharge, we get her set up with her LifeVest. While lenin camacho was here, she also will have cardiac rehabilitation got set up with and they recommended outpatient cardiac rehabilitation and got [facility] who she would continue to follow up with outpatient. She also was getting set up with home health services, which will be getting set up wit carey the week of discharge. Other than that, there were no abnormalities other than the hyperkalemia on her labs. Most of the times her vital signs were stable. Blood pressure will be elevated at time s, but most times it will be stable after being started on blood pressure medications. At this time, she had home health being set up, had her LifeVest. We had discussed with her plan of care that she wanted and discuss this to the patient spiritual care coordinator and discharge her. DISCHARGE DISPOSITION: Guarded. DISCHARGE LOCATION: Home. ACTIVITIES: Activity as tolerated. DIET: Heart healthy diet. FOLLOWUP: She will need to follow up with her primary care doctor within a week. For [facility], she will need to follow up with cardiac rehab and [facility] as scheduled.
== END 2017-07-20 19:35 | disposition home or self-care (01) | DRG 299 ==
LOC: 2NO 15:57
PROVIDERS: ADMIT Family Medicine; ATTEND Family Medicine
DX: I82.431 Acute embolism and thrombosis of right popliteal vein (principal); I26.99 Other pulmonary embolism without acute cor pulmonale; I47.2 Ventricular tachycardia; I50.22 Chronic systolic (congestive) heart failure; I24.0 Acute coronary thrombosis not resulting in myocardial infarction; I42.0 Dilated cardiomyopathy; E87.1 Hypo-osmolality and hyponatremia; I11.0 Hypertensive heart disease with heart failure; E87.5 Hyperkalemia; Z79.01 Long term (current) use of anticoagulants; I51.3 Intracardiac thrombosis, not elsewhere classified; Z91.14 Patient's other noncompliance with medication regimen; Z86.74 Personal history of sudden cardiac arrest; I34.0 Nonrheumatic mitral (valve) insufficiency; I27.20 Pulmonary hypertension, unspecified; I44.7 Left bundle-branch block, unspecified
CPT/HCPCS: 36415; 80048; 80053; 80061; 82565; 83880; 85014; 85018; 85025; 85049; 93005; 93010; 93306; 93798; J1650; J1940

== ENCOUNTER 2017-07-21 04:46 | Observation (INO) | payer SELFPAY, OTHER ==
[2017-07-21] MEDS ORDERED: Lorazepam 2 MG/ML VIAL ONE (05:53)
[2017-07-21] MEDS ORDERED: Oxymetazoline HCl 0.05% ( 15 ML ) ONE (05:53)
[2017-07-21] MEDS ORDERED: Lidocaine 1% w/Epinephrine 1:100K 20 ML VIAL ONE (05:53)
[2017-07-21 05:55] LABS: #Basophils 0.1 thou/uL (0.0-0.2); #Eosinphils 0.1 thou/uL (0.0-0.7); #Lymphocytes 1.1 thou/uL (1.20-3.40); #Monocytes 0.5 thou/uL (0.11-0.59); #Neutrophils 6.5 thou/uL (1.40-6.50); %Basophils 0.7 % (0.0-1.0); %Eosinophils 0.8 % (0.0-10.0); %Lymphocytes 13.6 % (21.0-51.0); %Monocytes 5.8 % (0.0-10.0); %Neutrophils 79.1 % (42.0-75.0); Hemoglobin 12.6 g/dL (12.0-16.0); Mean Corpuscular HGB CONC 31.9 g/dL (32.0-36.0); Mean Corpuscular Volume 97.2 fl (81.0-99.0); Mean Platelet Volume 6.8 fL (7.4-10.4); Platelet Count 359 thou/uL (130-400); RBC Distribution Width 15.3 % (11.5-14.5); Red Blood Cell (RBC) Count 4.07 mill/uL (4.20-5.40); White Blood Cell (WBC) Count 8.2 thou/uL (4.8-10.8)
[2017-07-21 06:00] LABS: INR-International Normal Ratio 1.2; PTT 31.1 SEC (22.9-36.1); Prothrombin Time 15.6 SEC (12.0-14.7)
[2017-07-21 06:07] LABS: Anion Gap 11 mmol/L (10-20); BUN (Urea Nitrogen) 29 mg/dL (9.8-20.1); Calc. Creatinine Clearance 0 mL/min (70-130); Calcium 8.9 mg/dL (7.8-10.44); Carbon Dioxide 25 mmol/L (23-31); Chloride 104 mmol/L (98-107); Estimated GFR-MDRD 72; Glucose 128 mg/dL (80-115); Potassium 4.1 mmol/L (3.5-5.1); Sodium 136 mmol/L (136-145)
[2017-07-21 09:43] VITALS: BMI 29.1
[2017-07-21] MEDS ORDERED: Ondansetron HCl/PF 4 MG/2 ML Vial IVP PRN (09:44)
[2017-07-21] MEDS ORDERED: Ondansetron ODT 4 MG TAB SL PRN (09:44)
--- NOTE | 2017-07-21 13:49 | HP ---
DATE OF ADMISSION: 07/21/2017 CHIEF COMPLAINT: Nosebleed. HISTORY OF PRESENT ILLNESS: This is a 62-year-old female with extensive past medical history which includes systolic heart failure, EF of 10-15%, history of DVT, history of PE, history of hypertension. She presents with a severe epistaxis that started last night at 10:00 p.m. and because of this, she presented to the ED where she had 2 rockets placed with subsequently good hemostasis was admitted to our service. Currently, she says her nose hurts and is uncomfortable. It is mild to moderate, does not radiate and is achy and pressure-like. No associated nausea, vomiting, difficulty breathing, chest pain or shortness of breath. Other than the pain, she says she has no complaints. REVIEW OF SYSTEMS: All other systems reviewed and are negative. PAST MEDICAL HISTORY: As above. PAST SURGICAL HISTORY/MEDICATIONS/FAMILY HISTORY: See resident's H&P. ALLERGIES: No known drug allergies. PHYSICAL EXAMINATION: VITAL SIGNS: Include pulse 104, O2 sat 97.7, BP 150/104, satting 96% on room air. GENERAL: The patient is no acute distress, resting comfortably in bed. HEENT: Head normocephalic, atraumatic. Nares with bilateral Rhino rockets and old blood on her upper lip. Moist mucous membranes. Pinna normal. Nares patent with the exception of the balloons. CARDIOVASCULAR: Regular rate and rhythm without murmur, gallops or rubs and not tachycardic when I examined her. LUNGS: Clear to auscultation bilaterally without wheeze, rales or rhonchi or increased work of breathing. Overall, very comfortable appearing. ABDOMEN: Bowel sounds positive, nontender to palpation. No palpable organomegaly. GENITOURINARY: Deferred. MUSCULOSKELETAL: Without obvious deformity or contracture except for swelling in bilateral lower extremities with chronic changes. NEUROLOGIC: Cranial nerves II-XII intact and symmetrical. Motor 5/5 in upper and lower extremities. Sensation intact to light touch in upper and lower extremities. PSYCHIATRIC: Alert and oriented x3. She has a mildly anxious affect and mood, really wants ENT to come see her, otherwise appropriate for current medical condition. SKIN: With what seemed to be chronic venous changes on bilateral lower extremities. Otherwise, no obvious wound or rash. LABORATORY DATA: Include a hemoglobin 12.6, white count 8.2, platelets 359. INR 1.2, PTT 31.1. Chemistry 136, potassium 4.1, chloride 104, bicarb 25, gap of 11, BUN 29, creatinine 0.81, glucose 128, calcium 8.9. X-RAYS/IMAGING: None. ASSESSMENT AND PLAN: 1. Epistaxis. She has bilateral Rhino rockets in place. We will go ahead and consult ENT and await their recommendation. She is on telemetry. We will ask the nurse to keep a close eye on her pulse ox as she has bilateral Rhino rockets , especially if they are in place overnight. 2. Nonischemic cardiomyopathy with ejection fraction of 10-12% with a left ventricular thrombus. She was previously on Lovenox. She is refusing anticoagulation at this point and says she does not want anything done until ENT sees her. For pain we will give her Tylenol as needed. 3. Gastrointestinal prophylaxis with Pepcid. Lasix, continue home dose at 80 mg. Continue lisinopril and labetalol. 4. Deep venous thrombosis prophylaxis. Hopefully, with Lovenox, but again the patient is quite self-directed concerning her medical plan. CHAROD
[2017-07-21] MEDS ORDERED: Furosemide 40 MG TAB PO SCH (14:00)
[2017-07-21] MEDS: Furosemide 80 MG TAB PO SCH (14:50)
[2017-07-21] MEDS ORDERED: Nebivolol HCl 2.5 MG TAB PO SCH (17:45)
[2017-07-21] MEDS ORDERED: Lisinopril 2.5 MG TAB PO SCH (17:45)
[2017-07-21] MEDS: Acetaminophen 325 MG TAB PO PRN (19:25)
[2017-07-21] MEDS: Potassium Chloride 20 MEQ TAB PO SCH (19:33)
[2017-07-21] MEDS: Famotidine 20 MG TAB PO SCH (19:33)
[2017-07-21] MEDS ORDERED: Famotidine 40 MG/4 ML VIAL SLOW IVP SCH (21:00)
[2017-07-21] MEDS ORDERED: Famotidine/PF 20 mg/2ml Vial SLOW IVP SCH (21:00)
[2017-07-21] MEDS ORDERED: diphenhydrAMINE 25 MG in Sodium Chloride 0.9% 50 ML IVPB SCH (22:30)
[2017-07-21] MEDS ORDERED: Metoclopramide HCl 10 MG/2 ML VIAL IVP SCH (22:30)
[2017-07-21] MEDS ORDERED: diphenhydrAMINE 50 MG/ML VIAL IVP SCH (23:00)
[2017-07-22] MEDS: Acetaminophen 325 MG TAB PO PRN (00:03)
[2017-07-22 06:04] LABS: Band 3 % (5-11); Hemoglobin 12.7 g/dL (12.0-16.0); Lymphocytes 8 % (21-51); MDiff Complete? YES; Mean Corpuscular HGB CONC 31.7 g/dL (32.0-36.0); Mean Corpuscular Hemoglobin 31.3 pg (27.0-31.0); Mean Corpuscular Volume 98.6 fl (81.0-99.0); Mean Platelet Volume 8.1 fL (7.4-10.4); Monocytes 8 % (0-10); Neutrophil 81 % (42-75); PLT Morphology Comment Appears Adequate; Platelet Count 338 thou/uL (130-400); RBC Distribution Width 15.9 % (11.5-14.5); Red Blood Cell (RBC) Count 4.05 mill/uL (4.20-5.40); White Blood Cell (WBC) Count 11.7 thou/uL (4.8-10.8)
--- NOTE | 2017-07-22 06:06 | HP-2 ---
RESIDENT: Rob Truong D.O. ATTENDING: Jaya Dias MD PRIMARY CARE PHYSICIAN: Dereje lazaro back. CODE STATUS: FULL. HISTORIAN: Patient. SPECIALISTS: None. CHIEF COMPLAINT: Nosebleed. HISTORY OF PRESENT ILLNESS: The patient is a 62-year-old female with past medical of CHF (ejection fraction less than 10%), right lower extremity DVT, PE , hypertension, here for epistaxis. The patient reports that it started last night; however, she is unable to determine when it started exactly. She reports that it has been bleeding ever since that time of until presenting to the ER this morning. The patient was discharged yesterday from [facility] with initial admission for hyperkalemia. The patient was found to have ejection fraction of less than 10% at that visit on transthoracic echocardiogram. Dr. Lou, Cardiology was consulted and recommended the patient consider an AICD; however, the patient refused and is instead agreeable to using LifeVest; however, she reports that she is only able to wear it in a certain sitting position. The patient also refused amiodarone as she is concerned about the long-term effects of toxicity. Patient also refused Xarelto for which she was supposed to be on for PE, right lower extremity DVT, and thrombus in atrium. She did agree to a less been therapeutic dose of Lovenox. It is worth noting that the patient had a history of refusing to be discharged from hospitals during previous visits and on discharge of previous hospitalization, the patient was hesitant to be discharged and only agreed after extensive discussion with her information resources director. ER COURSEL: [facility]. PAST MEDICAL HISTORY: CHF with an ejection fraction of 10%, DVT of the right lower extremity, PE, hypertension. PAST SURGICAL HISTORY: Cardiac catheterization 2.5 weeks ago. ALLERGIES: NKDA. MEDICATIONS: 1. Lovenox 120 mg at bedtime. 2. Bystolic 2.5 mg daily. 3. Furosemide 80 mg p.o. b.i.d. 4. Potassium chloride 20 mEq b.i.d. 5. Lisinopril 5 mg p.o. daily. FAMILY HISTORY: Not significant. SOCIAL HISTORY: Smoked in college. ALCOHOL: None. RECREATIONAL DRUGS: None. REVIEW OF SYSTEMS: General: Denies fevers or chills. Eyes: Denies vision changes. ENT: Endorses epistaxis. Respiratory: Denies cough, endorses shortness of breath. Cardiovascular: Denies chest pain, has been having edema in legs to the knees bilaterally. Gastrointestinal: Denies vomiting, diarrhea, and GI bleed. Genitourinary: Denies dysuria, polyuria. Skin: Denies rashes or lesions. Musculoskeletal: Denies pain or tenderness. Neuro: Denies weakness or numbness. PHYSICAL EXAMINATION: VITAL SIGNS: Blood pressure 150/104, pulse 104, respiratory rate 20, T-max 97.7 , pulse ox 96% on room air. Current weight 81 kilograms. GENERAL: Alert and oriented x3. EYES: PERRLA, EOMI. Conjunctivae within normal limits. ENT: Bilateral rhino rockets with no epistaxis currently. NECK: Supple, with no lymphadenopathy or thyromegaly. CARDIOVASCULAR: Regular rate and rhythm. No murmurs or gallops. Radial pulses symmetric bilaterally. RESPIRATORY: Normal effort. Clear to auscultation bilaterally. SKIN: Warm and dry. No cyanosis. ABDOMEN: Soft, nontender with bowel sounds in all 4 quadrants. EXTREMITIES: Bilateral pitting edema in lower extremities, 2+ to the knees. MUSCULOSKELETAL: Structure and tone within normal limits. Full range of motion. NEUROLOGIC: No focal deficits. Sensation within normal limits. ACS 15. LABORATORY DATA: WBC is 8.2, H and H 12.6 and 39.5, platelets 254,000, MCV 97.2 %, neutrophils 79.1. Sodium 136, potassium 4.1, chloride 104, bicarbonate 25, BUN 29, creatinine 0.81 , glucose 128, calcium 8.9. PT 15.6, INR 1.2, aPTT 31.1. ASSESSMENT AND PLAN: A 62-year-old female presents with: 1. Epistaxis. Rhino rocket is in place at this time with no active bleeding. ENT consult from ER, recs appreciated. We will continue with Lovenox at this time as DVT prophylaxis as thrombosis is more significant event than nosebleed. 2. Congestive heart failure. Continue with home medications. I counseled on patient wearing LifeVest and medication compliance. Despite the fact that she seems to be unconcerned with this component of her health, career counselor the patient extensively believe that heart beating would be a problem. 3. Anticoagulation. Continue on home dosing of Lovenox 80 mg in the evening and 40 in the morning as allowed by patient as she oftentimes seems to be noncompliant. 4. Medication noncompliance. 5. Nonsustained ventricular tachycardia. 6. Left bundle branch block. DISPOSITION AND LENGTH OF HOSPITAL STAY: Observation in telemetry, 1 day. Symptomatic medications will be provided. History and physical exam as well as management discussed with Dr. Dias. NILAY
[2017-07-22 08:07] LABS: ALT (SGPT) 45 U/L (8-55); AST (SGOT) 27 U/L (5-34); Albumin 2.9 g/dL (3.4-4.8); Alkaline Phosphatase 51 U/L (40-150); Anion Gap 15 mmol/L (10-20); BUN (Urea Nitrogen) 27 mg/dL (9.8-20.1); Bilirubin, Total 2.2 mg/dL (0.2-1.2); Calc. Creatinine Clearance 96 mL/min (70-130); Carbon Dioxide 24 mmol/L (23-31); Chloride 102 mmol/L (98-107); Estimated GFR-MDRD 74; Glucose 122 mg/dL (80-115); Potassium 3.9 mmol/L (3.5-5.1); Protein, Total 6.9 g/dL (6.0-8.3); Sodium 137 mmol/L (136-145)
--- NOTE | 2017-07-22 08:56 | PDOC.FM ---
- Subjective Subjective: Pt reports having pain and pressure in her head due to nasal catheters in place. Pt says she is not in the right state of mind due to the pressure. Says she can not fully make appropriate decisions about her care as she is altered and not the Ms. Roper that we know. Denies any more bleeding. Says does not have life vest but does not want amiodorone for episodes of Vtach. Again pt refusing lovenox therapy due to nose bleeds. Discussed with her the risks of from her clots vs the nose bleed. - Objective MAR Reviewed: Yes Vital Signs & Weight: Vital Signs (12 hours) Temp Pulse Resp BP Pulse Ox 07/22/17 07:38 97.8 F 99 20 07/22/17 07:37 97.8 F 99 20 147/105 H 96 07/22/17 04:21 97.8 F 93 22 H 160/106 H 100 07/22/17 00:00 99 22 H 147/98 H 95 Weight Weight 81.284 kg I&O: 07/21/17 07/22/17 07/23/17 06:59 06:59 06:59 Intake Total 480 Output Total 950 Balance -470 Result Diagrams: 07/22/17 04:20 07/22/17 04:20 <Rl Trent - Last Filed: 07/22/17 08:54> - Objective Vital Signs & Weight: Vital Signs (12 hours) Temp Pulse Resp BP Pulse Ox 07/22/17 12:15 97.9 F 96 18 141/97 H 93 L 07/22/17 09:04 22 H 96 07/22/17 07:38 97.8 F 99 20 07/22/17 07:37 97.8 F 99 20 147/105 H 96 07/22/17 04:21 97.8 F 93 22 H 160/106 H 100 Weight Weight 81.964 kg I&O: 07/21/17 07/22/17 07/23/17 06:59 06:59 06:59 Intake Total 480 200 Output Total 950 Balance -470 200 Result Diagrams: 07/22/17 04:20 07/22/17 04:20 <Barron Morales - Last Filed: 07/22/17 13:22> Phys Exam - Physical Examination Constitutional: NAD HEENT: PERRLA, moist MMs, sclera anicteric Neck: no nodes, supple, full ROM Respiratory: no wheezing, no rhonchi mild rales noted Cardiovascular: RRR, no rub systolic murmur noted Gastrointestinal: soft, non-tender, no distention, positive bowel sounds Musculoskeletal: pulses present, edema present (+2 pitting edema noted bilaterally LE) Neurological: non-focal, normal sensation, moves all 4 limbs Lymphatic: no nodes Deviation from normal: Pt is acting altered. Says she is not herself. Skin: no rash, normal turgor <Rl Trent - Last Filed: 07/22/17 08:54> Dx/Plan (1) Epistaxis Code(s): R04.0 - EPISTAXIS Status: Acute (2) Deep vein thrombosis (DVT) of distal vein of right lower extremity Code(s): I82.4Z1 - AC EMBLSM AND THOMBOS UNSP DEEP VEINS OF R DIST LOW EXTRM Status: Acute (3) Pulmonary embolism Code(s): I26.99 - OTHER PULMONARY EMBOLISM WITHOUT ACUTE COR PULMONALE Status : Acute (4) CHF (congestive heart failure) Code(s): I50.9 - HEART FAILURE, UNSPECIFIED Status: Chronic (5) HTN (hypertension) Code(s): I10 - ESSENTIAL (PRIMARY) HYPERTENSION Status: Chronic - Plan Plan: 1)Epistaxis -likely related to lovenox therapy that she needs due to LA thrombus, PE and DVT. -ENT consulted- Will follow recs -Nasal catheters in place. No bleed noted overnight. -Will discuss risks of nose bleed vs lovenox therapy for risk of from thrombus. Pt refusing lovenox at this time. -pt does not want to take any oral anticoagulation therapy 2) CHF with EF <10% with left ventricular thrombus - She is on lasix, lisinopril, and nevibolol -Pt did not want to be on coreg. Herself wanted nevibolol - Cards discussed AICD with patient at length on previous admission a few days ago; patient refuses at this time - Will need 6 months of anticoagulation therapy - Echo showed persistent left atrium thrombus per cards - Add 20 mEq K to medication regimen daily; patient refusing to take - Patient does not have life vest with her and does not want amioderone for the short term. - Patient refusing therapeutic lovenox 2. DVT of RLE - Pt does not want to take lovenox at this time due to nose bleed. Only wants 80 mg dose and one times a day. Discussed with patient that this is not even therapeutic dose. She understands. - Does not want to take xeralto - Diagnosed several weeks ago 3 Pulmonary embolism - On therapeutic lovenox, refusing at this time. Discussed with patient this morning about the risks of nosebleed vs from clots. - Does not want to take xeralto - Diagnosed several weeks ago - May need to consider IVC filter per cards at previous visit 4. HTN - Continue home medications. BP a little elevated. May need to adjust 5 Non-sustained Vtach - Patient has life vest that she does not have with her. discussed with her she needs to have it brought her. Does not want to take amioderone. ; she has agreed to have it brought to hospital <Rl Trent - Last Filed: 07/22/17 08:54> Attending Addendum - Attending Addendum I personally evaluated the patient and discussed the management with Dr. Trent. I agree with the History, Examination, Assessment and Plan documented above with any addition or exceptions noted below. Patient admitted to obs status due to epistaxis that was likely brought on by her being on anticoagulation. She is currently only having mild oozing, and her R nare is still packed. ENT has seen patient and removed the L nostril packing. Patient complains to us that this was an effect of her being on an "inappopriate " dose of Lovenox. She has been reminded that Lovenox is necessary due to her lower extremity DVT, her pulmonary emboli, and the thrombus that is currently in her heart. I explained in depth that current anticoagulation was a true risk/ benefit issue. The risks of being on anticoagulation include recurrent epistaxis in addition to bleeding from other sources. The benefit of taking Lovenox (or other chronic anticoagulation) is to hopefully prevent propagation of her clot burden or fatal embolism. Patient repeated to me multiple times that she understands the risks, but does not want to take a therapeutic dose of Lovenox, and will only agree to 80mg daily (a very arbitrary number best I can gather). Patient also continues to refuse to wear her LifeVest or accept anti- arrhythmic therapy for her nonsustained Vtach. She is aware that this can lead to fatal dysrhythmia. We will discuss case with Dr. Wilkinson and see if it is appropriate for her to have her nasal packing removed in clinic tomorrow. Patient reports that she will refuse her Lovenox (despite the risks) until at least tomorrow. We are currently not managing any other problems, mostly due to her rejection of medical therapy for multiple chronic medical conditions. If her packing can be removed as outpatient, I would deem the patient medically stable for discharge. She reports multiple times that she is aware why she is having the nosebleeds, but that it may be a minor mcneil to pay for the benefit of local intermodal truck driver anticoagulation in her case. She is very resistant to leave the hospital ( as she was during her last admission), despite refusing most medical therapy we offer her that in our judgement is best for her residential delmy. It has been explained to her that if she continues to refuse medical therapy that there are few options we can provide for her here and nothing currently ongoing that necessitate hospitalized care and she and other members in the room seem to understand that. <Barron Morales - Last Filed: 07/22/17 13:22>
[2017-07-22] MEDS ORDERED: Lisinopril 2.5 MG TAB PO SCH (09:00)
[2017-07-22] MEDS ORDERED: Nebivolol HCl 2.5 MG TAB PO SCH (09:00)
[2017-07-22] MEDS ORDERED: Enoxaparin Sodium 80 MG/0.8 ML SYRINGE SC SCH (09:00)
[2017-07-22] MEDS ORDERED: Enoxaparin Sodium 40 MG/0.4 ML SYRINGE SC SCH (09:00)
[2017-07-22] MEDS: Potassium Chloride 20 MEQ TAB PO SCH (12:15)
[2017-07-22] MEDS: Famotidine 20 MG TAB PO SCH (12:15)
[2017-07-22] MEDS: Furosemide 80 MG TAB PO SCH ×2 (13:48→13:49)
[2017-07-22] MEDS ORDERED: Furosemide 40 MG TAB PO SCH (14:15)
[2017-07-22 16:57] VITALS: BP 123/83; TEMP 98.5
--- NOTE | 2017-07-23 11:48 | DIS-2 ---
DATE OF ADMISSION: 07/21/2017 DATE OF DISCHARGE: 07/22/2017 ADMITTING ATTENDING: Dr. Dias. DISCHARGE ATTENDING: Barron Morales MD PROCEDURES: She had nasal catheters placed in both nares bilaterally. CONSULTS: Dr. Wilkinson with ENT. PRIMARY DIAGNOSIS: Epistaxis on long-term anticoagulation Lovenox. SECONDARY DIAGNOSES: 1. Congestive heart failure with ejection fraction less than 10% with left ventricular thrombus. 2. Deep venous thrombosis of right lower extremity. 3. Pulmonary embolism. 4. Hypertension. 5. Nonsustained ventricular tachycardia. DISCHARGE MEDICATIONS: Acetaminophen 650 mg p.o. q.4 hours, Enoxaparin 80 mg subcu once a day, furosemide 80 mg p.o. b.i.d., lisinopril 2.5 mg p.o. daily, nebivolol 2.5 mg p.o. daily, potassium chloride 20 mEq p.o. b.i.d. DISCONTINUED MEDICATIONS: No discontinued medications. HISTORY OF PRESENT ILLNESS AND BRIEF HOSPITAL COURSE: This patient is a 62-year -old female with past medical history of CHF, ejection fraction, right lower DVT , PE, hypertension, left ventricular thrombus. The patient was recently discharged from [facility] on the . At that time, she was admitted for hyperkalemia, was found to have an ejection fraction less than 10, was found to have left ventricular thrombus. She was supposed to be on therapeutic Lovenox b.i.d., but the patient is very noncompliant with medications. Seems to have her own plans and refuses to follow our medical recommendations. We gave her therapeutic Lovenox in the date of discharge on the and she totally got a nosebleed that lasted about 5 hours overnight on the and , then she came in with a nosebleed. We checked her hemoglobin , her hemoglobin was fine 12.6. They put some rhino rockets in the ER and subsequently bleeding stopped. At this time, we consulted ENT, Dr. Wilkinson to come and see her during this time. They came and put in nasal catheters in each of her nose. We held her Lovenox just for the day. At this time, she is supposed to be wearing a LifeVest as well. She had many episodes of V-tach, had such a bad heart failure, again she is noncompliant, did not have her LifeVest on admission. Next day, ENT saw her and took the catheter out of one of her nares. Again, patient was admitted to observation likely for epistaxis brought on by her being on anticoagulation. She is currently only having mild oozing, right now was still packed. ENT was seen and removed the left nostril packing. The patient complains that this is not an appropriate dose of Lovenox. She was reminded that the Lovenox is necessary due to her lower extremity DVT or pulmonary emboli and thrombus that is currently in her heart. We discussed the need to increase her current anticoagulant with a true risk benefit issue. The risks of being on anticoagulation include recurrent epistaxis, bleeding from other sources, and the benefit of taking Lovenox as hopefully to prevent propagation of clot burden or fatal embolism. Patient repeated to me multiple times that she understands the risks, but did not want to take a therapeutic dose of Lovenox and will only agree to 80 mg daily, a very arbitrary number as best I can gather, the patient also continues to refuse to wear her LifeVest or accept antiarrhythmic therapy for her nonsustained V-tach. Again at last visit, she refused to take amiodarone due to the long-term effects. She is aware that this can lead to fatal dysrhythmia. We will discuss the case with family and we discussed the case with Dr. Wilkinson, he again did not want her to be off the Lovenox. She understood the risks. He said that she refused the Lovenox against medical recommendations. At this time, we decided to discharge her as she could follow up with Dr. Wilkinson outpatient to get the other nasal catheter removed. She is here for OB status. We are not currently managing any of her problems mostly due to her rejection of medical therapy for multiple chronic medical conditions. Patient is very resistant to leave the hospital as she was during her last admission despite refusing most medical therapy. We did offer her that in our best judgment for her long-term health, if she continues to refuse medical treatment there are few options we can provide for her and nothing currently ongoing that necessitate hospitalist care and she and other members in the room seemed to understand that. The patient wants to be taken care of and wants to stick around. She said she would private pay. I again advised her if she wanted to go somewhere where people can take care of her, she can write a check to prison and they will take care of her. We gave her some resources for home health and comfort care as well. Again, this patient even though she comes in and has multiple potentially fatal diagnoses, she again deemed not to follow recommendations such as not to take amiodarone on the last visit, not having her LifeVest on during admission, and refusing therapeutic doses of Lovenox that will prevent the clot from killing her. At this time, we got her nose bleeding under control. She can follow up outpatient, so we discharged her. DISPOSITION: Guarded. DISCHARGE INSTRUCTIONS: 1. Location: Home. 2. Discharge activity: Activity as tolerated. 3. Diet: Heart healthy diet. 4. Followup: We will need to follow up with her primary care physician within 14 days for hospital followup. NILAY
== END 2017-07-22 18:34 | disposition home or self-care (01) ==
LOC: ERS 04:46 → 2SW 07:58
PROVIDERS: ADMIT Family Medicine; ATTEND Family Medicine
DX: R04.0 Epistaxis (principal); I82.4Z1 Acute embolism and thrombosis of unspecified deep veins of right distal lower extremity; I26.99 Other pulmonary embolism without acute cor pulmonale; I11.0 Hypertensive heart disease with heart failure; I50.9 Heart failure, unspecified; I47.2 Ventricular tachycardia; I42.8 Other cardiomyopathies; E87.5 Hyperkalemia; Z79.01 Long term (current) use of anticoagulants
CPT/HCPCS: 30903; 36415; 80048; 80053; 85007; 85025; 85027; 85610; 85730; 96374; A4216; G0378; J1200; J1650; J2001; J2060; J2765

== ENCOUNTER 2018-02-08 12:41 | Inpatient (IN) | payer SELFPAY, OTHER ==
[2018-02-08 13:27] LABS: PTT 26.5 SEC (22.9-36.1)
[2018-02-08 13:28] LABS: Hemoglobin 13.3 g/dL (12.0-16.0); Mean Corpuscular HGB CONC 30.8 g/dL (32.0-36.0); Mean Corpuscular Hemoglobin 26.9 pg (27.0-31.0); Mean Corpuscular Volume 87.3 fL (78.0-98.0); Prothrombin Time 22.7 SEC (12.0-14.7); RBC Distribution Width 19.9 % (11.5-14.5); Red Blood Cell (RBC) Count 4.93 mill/uL (4.20-5.40); White Blood Cell (WBC) Count 11.4 thou/uL (4.8-10.8)
--- NOTE | 2018-02-08 13:34 | CT ---
CT OF THE BRAIN WITHOUT CONTRAST: INDICATION: History of CHF exacerbation with weakness and malaise. The patient fell off of commode. COMPARISON: None. 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 There is severe chronic small-vessel white matter ischemic change. Septum pellucidum and third ventricle are midline. No acute infarct, hemorrhage, or hydrocephalus is present. The skull is intact. Masto id air cells are clear. Paranasal sinuses are clear. IMPRESSION: 1. No acute intracranial abnormality. 2. Chronic ischemic change as above. POS: [facility]
[2018-02-08 13:40] LABS: CKMB 2.8 ng/mL (0-6.6); Troponin I 0.281 ng/mL (< 0.028)
[2018-02-08 13:41] LABS: Mean Platelet Volume 10.3 fL (7.4-10.4); Platelet Count 96 thou/uL (130-400)
[2018-02-08 13:42] LABS: Anisocytosis SLIGHT = 6-15 cells (100X) (0-5/hpf); Band 2 % (5-11); Lymphocytes 2 % (21-51); MDiff Complete? YES; Monocytes 7 % (0-10); Neutrophil 89 % (42-75); Nucleated RBC 3 % (0); PLT Morphology Comment Appears Decreased; Polychromasia SLIGHT = 2-3 cells (100X) (0-2/hpf)
[2018-02-08 13:43] LABS: ALT (SGPT) 96 U/L (8-55); AST (SGOT) 92 U/L (5-34); Albumin 2.9 g/dL (3.4-4.8); Alkaline Phosphatase 76 U/L (40-150); BUN (Urea Nitrogen) 44 mg/dL (9.8-20.1); Bilirubin, Total 5.3 mg/dL (0.2-1.2); Calc. Creatinine Clearance 0 mL/min (70-130); Calcium 8.8 mg/dL (7.8-10.44); Carbon Dioxide 18 mmol/L (23-31); Chloride 104 mmol/L (98-107); Estimated GFR-MDRD 54; Globulin 3.6 g/dL (2.4-3.5); Glucose 97 mg/dL (80-115); Potassium 5.2 mmol/L (3.5-5.1); Protein, Total 6.5 g/dL (6.0-8.3); Sodium 134 mmol/L (136-145)
--- NOTE | 2018-02-08 13:50 | RAD ---
PORTABLE CHEST: HISTORY: Dyspnea. FINDINGS: Heart size is enlarged. There are parenchymal changes in the right base more suggestive of an infilt rative-type process, possibly some effusion. There also appears to be slight blunting to the left co stophrenic angle. IMPRESSION: 1. Cardiomegaly. 2. Increased density in the right base suggesting more of an infiltrative-type process. Possibly so me associated effusion. POS: [facility]
[2018-02-08 13:54] LABS: Anion Gap 17 mmol/L (10-20)
[2018-02-08] MEDS ORDERED: Nitroglycerin 2% Ointment 1 INCH/1 GM Packet ONE (15:29)
[2018-02-08] MEDS ORDERED: Furosemide 40 MG/4 ML VIAL ONE (15:29)
--- NOTE | 2018-02-08 15:38 | PDOC.FPRHP ---
- History of Present Illness Chief Complaint: shortness of breath History of Present Illness: 63yo F with pmh of CHF presents with history of SOB and weakness. She is unable to say when her sob started or give a specific reason that she came to the ED except that she wishes to have her CHF evaluated and that her home health physician recommended she come to the hospital to for treatment of a CHF exacerbation. Pt denies any chest/shoulder/abdominal pain whatsoever. Reports she has not taken her lasix in several days due to not wanting to get up to urinate frequently. Pt reports she was seen in [place] in June for evaluation of CHF and had echo then. Reports EF 10-15%. Pt demands to have a burden cath. ED Course: Pt given transdermal nitro, and 40mg lasix, EKG- normal sinus rhythm, LV enlargement - Allergies/Adverse Reactions Allergies Allergy/AdvReac Type Severity Reaction Status Date / Time No Known Allergies Allergy Verified 07/21/17 09:44 - Home Medications Medication Instructions Recorded Confirmed Type Enoxaparin Sodium 40 mg SQ DAILY 02/08/18 02/08/18 History Furosemide [Lasix] 40 mg PO DAILY 02/08/18 02/08/18 History - History PMHx: HFrEF(last recorded echo in 07/2017 with EF 10-12%), hx of DVT and PE, HTN PSHx: none FHx: father, HTN Social: Denies Et/OH, Tobacco, Drugs - Review of Systems General: denies: fever/chills Respiratory: reports: shortness of breath. denies: congestion Cardiovascular: denies: chest pain, palpitation, paroxysmal nocturnal dyspnea Gastrointestinal: denies: nausea, vomiting Skin: reports: itching. denies: rashes - Vital signs BP: [130/99] HR: [99] RR: [24] Tmax: [98] Pox: [99]% on [RA] Wt: [79] - Physical Exam Constitutional: awake, alert and oriented HEENT: normocephalic and atraumatic, EOMI, grossly normal hearing, MMM Chest: no-tender to palpation Heart: RRR, normal S1/S2, other (no S3) Lungs: CTAB, no wheezing, other (mildy diminished breath sounds) Abdomen: soft, non-tender, bowel sounds present Musculoskeletal: normal structure, normal tone Neurological: normal sensation Skin: no rash/lesions Psychiatric: normal mood and affect, other (poor judgement and insight) FMR H&P: Results - Labs Result Diagrams: 02/08/18 20:47 02/09/18 04:31 Lab results: WBC 11.4 thou/uL (4.8-10.8) H 02/08/18 13:14 Hgb 13.3 g/dL (12.0-16.0) 02/08/18 13:14 Hct 43.0 % (36.0-47.0) 02/08/18 13:14 MCV 87.3 fL (78.0-98.0) 02/08/18 13:14 Plt Count 96 thou/uL (130-400) L 02/08/18 13:14 Band Neuts % (Manual) 2 % (5-11) L 02/08/18 13:14 Sodium 134 mmol/L (136-145) L 02/08/18 13:14 Potassium 5.2 mmol/L (3.5-5.1) H 02/08/18 13:14 Chloride 104 mmol/L (98-107) 02/08/18 13:14 Carbon Dioxide 18 mmol/L (23-31) L 02/08/18 13:14 BUN 44 mg/dL (9.8-20.1) H 02/08/18 13:14 Creatinine 1.04 mg/dL (0.6-1.1) 02/08/18 13:14 Glucose 97 mg/dL (80-115) 02/08/18 13:14 Calcium 8.8 mg/dL (7.8-10.44) 02/08/18 13:14 Total Bilirubin 5.3 mg/dL (0.2-1.2) H 02/08/18 13:14 AST 92 U/L (5-34) H 02/08/18 13:14 ALT 96 U/L (8-55) H 02/08/18 13:14 Alkaline Phosphatase 76 U/L (40-150) 02/08/18 13:14 CK-MB (CK-2) 2.8 ng/mL (0-6.6) 02/08/18 13:14 B-Natriuretic Peptide 9479.3 pg/mL (0-100) H 02/08/18 14:22 Serum Total Protein 6.5 g/dL (6.0-8.3) 02/08/18 13:14 Albumin 2.9 g/dL (3.4-4.8) L 02/08/18 13:14 FMR H&P: A/P - Problem List (1) CHF (congestive heart failure) Current Visit: No Status: Chronic Code(s): I50.9 - HEART FAILURE, UNSPECIFIED (2) CHF exacerbation Current Visit: Yes Status: Acute Code(s): I50.9 - HEART FAILURE, UNSPECIFIED (3) CAMERON (acute kidney injury) Current Visit: Yes Status: Acute Code(s): N17.9 - ACUTE KIDNEY FAILURE, UNSPECIFIED (4) HTN (hypertension) Current Visit: No Status: Chronic Code(s): I10 - ESSENTIAL (PRIMARY) HYPERTENSION (5) Transaminitis Current Visit: Yes Status: Acute Code(s): R74.0 - NONSPEC ELEV OF LEVELS OF TRANSAMNS & LACTIC ACID DEHYDRGNSE (6) Hyperbilirubinemia Current Visit: Yes Status: Acute Code(s): E80.6 - OTHER DISORDERS OF BILIRUBIN METABOLISM - Plan 63F with pmh of CHF presenting with SOB Acute on chronic HFrEF 10-12% with left ventricle thrombus A- BNP 9400, Echo 07/2017 ef 10-12%. Pt has hx of non compliance with meds nabivolol, lasix, lisinopril. P- Restart home medications; add spironolactone - Strict I&O's - Daily weights - IV lasix - Burden for strict I&O's - Puller Through on importance of medication compliance LV thrombus - On chronic anticoagulation with enoxaparin daily; states she is taking it at home Hx of PE and DVT - On anticoagulation CAMERON A- GFR 54, Cr. 1.04 on admission P- lasix to improve perfusion to kidneys - continue to monitor Hyperbilirubinemia and transamnitis A- bilirubin 5.3 AST 92 ALT 96, likely due to congestion P- RUQ ultrasound -hiv, rpr, hepc HTN A- Noncompliant with medications. BP 130/99 on admission P- home meds FMR H&P: Upper Level - Pertinent history 63 y/o F PMHx HFrEF presents to the ED complaining of SOB. The patient also reports increase LE swelling as well as abdominal wall swelling. She has been having to prop herself up with more at night lately. She sleeps in a vertical position. She is also having SOUSA. She reports that she has not been taking her medications except for her lovenox. She has had decreased energy. Her home health doctor, Dr. Liz, saw her today and sent her to the ED. She is demanding a burden catheter and states it is non negotiable to remove it until she is ready to leave the hospital. She denies any chest pain, abdominal pain, diarrhea, constipation. - Pertinent findings Gen well-developed, well nourished, alert, oriented, NAD CV tachycardic, regular rhythm, harsh systolic 3/6 systolic murmur heard best in LUSB Resp Good air movement bilaterally, crackles in bilateral lobes but > in RLL Abd soft, nontender to palpation Ext 4+ pitting edema to the bilateral hips Skin: jaundice CXR: cardiomegaly, increased density in RLL suggestive more of infiltrative process. Possibly associated effusion - Plan Date/Time: 02/08/18 1536 I, [Daniella Serra ], have evaluated this patient and agree with findings/plan as outlined by epidemiology intern resident. Pertinent changes/additions are listed here. Acute on chronic HFrEF 10-12% with left ventricle thrombus - last Echo 07/2017, repeat ordered -patient delcined lifevest during last hospitalization. No AICD. - Medication nly-[id number]-[id number] not taking (nabivolol, lasix, lisinopril) - Restart home medications; consider adding spironolactone - Strict I&O's, fluid restrict - Daily weights - IV lasix; will place burden for strict I&O's - Puller Through on importance of medication compliance -cont to monitor respiratory status as CXR suggestive of infiltrative process however afebrile, no productive cough. -repeat CXR after duresis hyperbilirubinemia -elevated to 5.3 -check direct bilirubin -RUQ sono Transaminitis -AST/ALT elevated at 92/96 respectively. likely 2/2 congestion -RUQ sono -HIV, RPR, hepatitis hx of LV thrombus - pending ECHO -she is only taking ppx lovenox at home, will cont until echo results Hx of PE and DVT - patient only taking ppx anticoagulation at home CAMERON - Lasix for diuresis to improve systolic function in order to improve perfusion to kidneys HTN - Noncompliant with medications - BP 130/99 on admission - Continue home medication regimen DVT ppx: lovenox Code status: full Dispo: Stable. Lasix for diuresis. Anticipate LOS >48 hours. Attending Addendum - Attending Addendum Date/Time: 02/09/18 1116 I personally evaluated the patient and discussed the management with Dr. Hernandez on 02/08/2018. 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 Patient unable to quantify timing of the increased symptoms. Her PCP does home visits and noted the increased swelling and recommended she come to the ER for evaluation and admission for diuresis. Patient hospitalized in July for similar symptoms and states that she felt well through October but has noted slow progression of symptoms since then. PMH/PSH/Meds/ All reviewed and agree with resident's documentation. Afebrile VSS. Exam repeated by me and agree with resident's documentation. Labs: CKC=2965, troponin I=0.281, Ze=330, K =5.2, Jn=513, CO2=18, BUN=44, Cr=1.04, BG=97, AST=92, ALT=96, Hgb=13.3, Hct= 43.0. A/P: 1) HFwith rEF- diuresis with IV lasix. Monitor weight. Trend cardiac enzymes. Discussed beta mark and HAYDER inhibitor with patient and she refuses these medications. 2) 2) H/o left ventricular thrombus- has been on lovenox injections as she has refused oral anticoagulants. Only on prophylaxis dose currently per patient. Consider contacted her PCP and verifying meds. 3) Transaminitis- most likely secondary to hepatic congestion.
[2018-02-08] MEDS ORDERED: Furosemide 40 MG/4 ML VIAL SLOW IVP SCH (17:00)
[2018-02-08 18:35] LABS: Troponin I 0.287 ng/mL (< 0.028)
[2018-02-08] MEDS ORDERED: Enoxaparin Sodium 40 MG/0.4 ML SYRINGE SC SCH (19:45)
[2018-02-08 20:03] VITALS: BMI 27.3
--- NOTE | 2018-02-08 20:17 | ULT ---
ULTRASOUND ABDOMEN LIMITED: (RIGHT UPPER QUADRANT) 02/08/2018 7:31 p.m. HISTORY: A 63-year-old female with elevated liver enzymes, transaminitis. FINDINGS: Gallbladder: Lumen filled with a large amount of sludge. Wall thickness up to 5 mm. No sonographic Andrade sign. No definite gallstone identified. No pericholecystic edema. Common duct: 5 mm. Liver: Nodular margins. Heterogeneous echotexture. Small amount of free fluid abuts the liver. Di lated hepatic veins and intrahepatic IVC. Pancreas: Obscured. Right kidney: No hydronephrosis. IMPRESSION: 1. Evidence for hepatic cirrhosis. 2. Small amount of ascites. 3. Large amount of sludge filling the gallbladder. 4. Diffuse mural thickening of the gallbladder. This is nonspecific, and could be due to hypoalbumi nemia and liver disease, and does not necessarily imply acute cholecystitis, although that is not rul ed out. 5. Dilated hepatic veins, suggestive of congestive heart failure. Clinical correlation is recommend ed. MERRICK Wadsworth POS: [facility]
[2018-02-08 21:20] LABS: Hemoglobin 13.4 g/dL (12.0-16.0); Lymphocytes 8 % (21-51); MDiff Complete? YES; Mean Corpuscular HGB CONC 33.1 g/dL (32.0-36.0); Mean Corpuscular Hemoglobin 28.2 pg (27.0-31.0); Mean Corpuscular Volume 85.2 fL (78.0-98.0); Mean Platelet Volume 9.5 fL (7.4-10.4); Monocytes 5 % (0-10); Neutrophil 87 % (42-75); PLT Morphology Comment Appears Decreased; Platelet Count 122 thou/uL (130-400); RBC Distribution Width 19.5 % (11.5-14.5); Red Blood Cell (RBC) Count 4.75 mill/uL (4.20-5.40); White Blood Cell (WBC) Count 10.4 thou/uL (4.8-10.8)
[2018-02-08 21:25] LABS: Troponin I 0.275 ng/mL (< 0.028)
[2018-02-08 21:34] LABS: Syphilis Antibody Nonreactive (Nonreactive)
[2018-02-08] MEDS: Sodium Chloride 0.9% 10 ML ONE (21:58)
[2018-02-09 00:31] LABS: HIV (1/2) Antibody/Antigen Non-Reactive (NonReactive); HIV 1/2 INDEX 0.11 S/CO (<1.00); Hep C IgG Ab Non-Reactive (NonReactive); Hep C Index 0.17 S/CO (0-0.79)
[2018-02-09 05:53] LABS: HBSAB Concentration 0.14 mIU/mL; HBSAg Index 0.25 S/CO (0-0.99); Hep B Core Total Ab Non-Reactive (NonReactive); Hep B Surf AB Non-Reactive (NonReactive); Hep B Surf Ag Non-Reactive S/CO (NonReactive)
[2018-02-09 06:28] LABS: ALT (SGPT) 85 U/L (8-55); AST (SGOT) 70 U/L (5-34); Albumin 2.6 g/dL (3.4-4.8); Alkaline Phosphatase 75 U/L (40-150); Anion Gap 18 mmol/L (10-20); BUN (Urea Nitrogen) 48 mg/dL (9.8-20.1); Bilirubin, Total 4.7 mg/dL (0.2-1.2); Calc. Creatinine Clearance 69 mL/min (70-130); Calcium 8.7 mg/dL (7.8-10.44); Carbon Dioxide 18 mmol/L (23-31); Chloride 106 mmol/L (98-107); Estimated GFR-MDRD 56; Globulin 3.4 g/dL (2.4-3.5); Glucose 123 mg/dL (80-115); Potassium 4.7 mmol/L (3.5-5.1); Sodium 137 mmol/L (136-145)
[2018-02-09] MEDS ORDERED: Enoxaparin Sodium 40 MG/0.4 ML SYRINGE SC SCH (09:00)
[2018-02-09] MEDS ORDERED: Lisinopril 2.5 MG TAB PO SCH (10:00)
[2018-02-09] MEDS ORDERED: Furosemide 40 MG/4 ML VIAL SLOW IVP SCH (10:00)
--- NOTE | 2018-02-09 11:57 | PDOC.FM ---
- Subjective Subjective: Ms. Roper reports she denied her medication this morning because she felt her BP was good. We discussed the findings on her RUQ ultrasound. She says she has never been told she has cirrhosis. Denies alcohol use (reports minimal use at early age). She denies AICD though it has been recommended. She had questions about her fluid restriction, which were answered. She says that she will not take any "chemical potassium" during her hospitalization if it is necessary as she will get her potassium through V8 juice. - Objective MAR Reviewed: Yes Vital Signs & Weight: Vital Signs (12 hours) Temp Pulse Resp BP Pulse Ox 02/09/18 08:55 97.4 F L 94 18 115/83 95 02/09/18 04:00 97.8 F 91 20 115/87 98 02/09/18 00:00 98.4 F 101 H 21 H 113/84 96 Weight Weight 75.16 kg I&O: 02/08/18 02/09/18 02/10/18 06:59 06:59 06:59 Intake Total 371 Output Total 1375 Balance -1004 Result Diagrams: 02/08/18 20:47 02/09/18 04:31 <Fallon Jimenez - Last Filed: 02/09/18 12:18> - Objective Vital Signs & Weight: Vital Signs (12 hours) Temp Pulse Resp BP Pulse Ox 02/09/18 12:28 97.6 F 97 18 114/84 94 L 02/09/18 08:55 97.4 F L 94 18 115/83 95 02/09/18 04:00 97.8 F 91 20 115/87 98 Weight Weight 75.16 kg I&O: 02/08/18 02/09/18 02/10/18 06:59 06:59 06:59 Intake Total 371 Output Total 1375 Balance -1004 Result Diagrams: 02/08/18 20:47 02/09/18 04:31 <Brittnee Logan - Last Filed: 02/09/18 15:36> Phys Exam - Physical Examination Constitutional: NAD HEENT: moist MMs Respiratory: no wheezing, no rales, no rhonchi RLL crackles Cardiovascular: RRR, no significant murmur Gastrointestinal: soft, non-tender, positive bowel sounds Musculoskeletal: edema present (significant 3+ pitting bilateral LE edema up to hip) Neurological: non-focal, moves all 4 limbs Skin: no rash, cap refill <2 seconds <Fallon Jimenez - Last Filed: 02/09/18 12:18> Dx/Plan (1) Cirrhosis of liver with ascites Code(s): K74.60 - UNSPECIFIED CIRRHOSIS OF LIVER; R18.8 - OTHER ASCITES Status : Acute (2) Thrombus Code(s): I82.90 - ACUTE EMBOLISM AND THROMBOSIS OF UNSPECIFIED VEIN Status: Acute (3) Hyperbilirubinemia Code(s): E80.6 - OTHER DISORDERS OF BILIRUBIN METABOLISM Status: Acute (4) Transaminitis Code(s): R74.0 - NONSPEC ELEV OF LEVELS OF TRANSAMNS & LACTIC ACID DEHYDRGNSE Status: Acute (5) Deep vein thrombosis (DVT) of distal vein of right lower extremity Code(s): I82.4Z1 - AC EMBLSM AND THOMBOS UNSP DEEP VEINS OF R DIST LOW EXTRM Status: Acute (6) CHF (congestive heart failure) Code(s): I50.9 - HEART FAILURE, UNSPECIFIED Status: Chronic - Plan Plan: 63 year old F with PMH of CHF presenting with SOB and admitted for CHF exacerbation. Acute on chronic HFrEF 10-12% with left ventricle thrombus - BNP 9400, Echo 07/2017 showed EF 10-12%. Pt has hx of non compliance with meds nabivolol, lasix, lisinopril. AICD has been recommended in past, patient denied. - on telemetry, had a short period of wide complex tachy (not V tach) this am which quickly resolved. Otherwise in NSR - Echo pending - Restarted patient on lisinopril, patient refused med this morning - Fluid restriction with strict I&O's and daily weights - Continue IV lasix diuresis - Author on importance of medication compliance Hepatic cirrhosis - Patient denies a history of this diagnosis - RUQ US shouwed evidence for hepatic cirrhosis, small ascites, dilated hepatic veins - AST 92, ALT 96 on admission, downtrending - Hepatitis panel negative - Consult Dr. Samm HILL Elevated troponins - 0.281, 0.287, 0.275 - patient denies chest pain - ordered one more troponin to ensure continued downtrend Hyperbilirubinemia - 5.3 on admission, 4.7 today Hyperkalemia, resolved - 4.7 today - continue to monitor LV thrombus - On chronic anticoagulation with enoxaparin daily, though patient refuses therapeutic dosing at home. - Will order therapeutic lovenox Hx of PE and DVT - Patient taking prophylactic lovenox at home CAMERON - Cr. 1.04 on admissionlasix to improve perfusion to kidneys - continue to monitor HTN - Noncompliant with medications. BP stable DVT ppx: lovenox Code status: full Dispo: Stable. Lasix for diuresis <Fallon Jimenez - Last Filed: 02/09/18 12:18> Attending Addendum - Attending Addendum Date/Time: 02/09/18 7504 I personally evaluated the patient and discussed the management with Dr. Jimenez. I agree with the History, Examination, Assessment and Plan documented above with any addition or exceptions noted below. The patient was resting comfortably during our visit this morning. She asked questions about fluid restriction and told her she was on a 1.5 liter fluid restriction. She still has lower extremity edema and lasix is being increased to BID. The patient was noncompliant with heart failure meds at home. She has refused lisinopril this morning and we spent time explaining to the patient why her meds were necessary for chf despite her blood pressure being normal. Pt with elevated liver enzymes and bilirubin though they have trended down today. RUQ u/s shows cirrhosis of liver which is new to patient. will consult GI. She does still need diuresis. <Brittnee Logan - Last Filed: 02/09/18 15:36>
[2018-02-09 14:06] LABS: Troponin I 0.219 ng/mL (< 0.028)
[2018-02-09] MEDS: Enoxaparin Sodium 80 MG/0.8 ML SYRINGE SC SCH (20:17)
[2018-02-09] MEDS: Furosemide 40 MG/4 ML VIAL SLOW IVP SCH (20:18)
[2018-02-09] MEDS: Sodium Chloride 0.9% 10 ML ONE (20:18)
--- NOTE | 2018-02-09 21:36 | CON ---
DATE OF CONSULTATION: 02/09/2018 GI INPATIENT CONSULTATION REQUESTING PHYSICIAN: Dr. Fallon Jimenez. REASON FOR CONSULTATION: Cirrhosis. HISTORY OF PRESENT ILLNESS: Sanjana Roper is a 63-year-old woman who was admitted to the hospital [facility] with CHF exacerbation. She gives a past medical history of severe congestive heart failure, rep ortedly with last ejection fraction 10%-12% in [place] earlier this year. The patient reports no his tory of coronary artery disease, so I am not exactly sure what the reason is for her cardiomyopathy. She evidently has some issues with compliance with medications. She was not taking her Lasix for th e past several days and has also refused beta blockers, HAYDER inhibitors, etc. At any rate, she has no prior diagnosis of liver disease. No family history of liver disease. Upon presentation, she was f ound to have severely elevated BNP, but also elevation in liver enzymes with total bilirubin up to 4. 7, normal alkaline phosphatase, she had an abdominal ultrasound and this demonstrates nodular cirrhot ic appearing liver with a small amount of free fluid in the perihepatic area. Dilation of the intrah epatic-hepatic veins and inferior vena cava are also clearly seen on the ultrasound. The patient den ies any significant issues with nausea or vomiting, abdominal pain, or any prior history of jaundice or liver disease. Her primary symptom is severe lower extremity edema and generalized weakness and s hortness of breath. REVIEW OF SYSTEMS: Full review of systems including constitutional, head, eyes, ears, nose, throat, GI, , cardiovascular, respiratory, musculoskeletal, and neurologic systems is negative except as no martha in the HPI. PAST MEDICAL HISTORY: 1. Congestive heart failure due to cardiomyopathy. 2. Prior history of left ventricular thrombus for which she is on daily Lovenox as an outpatient. 3. Prior history of pulmonary embolus and DVT. 4. History of noncompliance with medical therapy. SOCIAL HISTORY: No smoking, alcohol, or drug use. FAMILY HISTORY: Negative for liver disease. ALLERGIES: No known drug allergies. OUTPATIENT MEDICATIONS: Enoxaparin 40 mg subcu daily, Lasix 40 mg p.o. daily. INPATIENT MEDICATIONS: Lovenox 40 mg subcu daily and Lasix 40 mg IV daily, lisinopril 2.5 mg daily. PHYSICAL EXAMINATION: VITAL SIGNS: Temperature 97.6, pulse 97, blood pressure 114/84, 94% oxygen saturation on room air. GENERAL: A 63-year-old woman appearing chronically ill, sitting up in bed in no distress. SKIN: She does have mild jaundice. She has some bruising and ecchymosis to the face. No rash visib le or palpable. EYES: Mild scleral icterus. Extraocular movements intact. ENT: Mucous membranes moist, no oral lesions. LYMPH: No submandibular, supraclavicular lymphadenopathy. THYROID: Nontender to palpation. HEART: Regular, borderline tachycardia. LUNGS: Bibasilar crackles. No tachypnea, no wheezing. ABDOMEN: Bowel sounds are present, soft, nontender to palpation. No organomegaly appreciated to pal pation. EXTREMITIES: 2-3+ bilateral lower extremity pitting edema. LABORATORY STUDIES: WBC 10.4, hemoglobin 13.4, platelets 122. INR 2.0, BUN 48, creatinine 1.0, sodi um 137, potassium 4.7, calcium 8.7, glucose 123, total bilirubin 4.7, alkaline phosphatase 75, AST 70 , ALT 85, GGT only 30. BNP was very elevated to 9479.3, troponin stable at 0.219, albumin low at 2.6 . Serologies for hepatitis B and C are negative. Syphilis IgG and IgM are negative. HIV antibody i s negative. IMAGING STUDIES: Abdominal ultrasound demonstrates nodular appearing liver with dilation of the IVC and dilation of the intrahepatic veins. There is a small amount of ascites. There is gallbladder sl udge, normal [address] bile duct[address] CT of the head shows chronic ischemic changes, but no acute abno rmalities. Chest x-ray showed cardiomegaly and an increased density in the right base suggestive of an infiltrative type process with possibly some associated effusion. ASSESSMENT AND PLAN: 1. Cirrhosis, nonalcoholic, new diagnosis. This is likely secondary to passive congestion and conge stive hepatopathy. 2. Congestive hepatopathy. 3. Congestive heart failure, severe. I understand that a repeat echocardiogram is pending, but the patient's presentation does certainly seem consistent with a CHF exacerbation. I would anticipate he r right-sided heart pressures are going to be a very high. There is clear imaging evidence of passiv e hepatic congestion, which is often associated with right heart failure. Her LFT elevation pattern also appears consistent with this. I note she does not drink alcohol and I also note the negative vi ral hepatitis serologies. We will round out the lab work up a little bit with some additional labs i n the morning to include autoimmune markers, iron studies, ceruloplasmin. We will also get alpha fet oprotein, though note there was no evidence of any mass lesion on her ultrasound. I think we should probably avoid any attempted liver biopsy in this case. Regarding treatment of her cirrhosis, there is really nothing additional to be added aside from optim izing management of her congestive heart failure. Certainly, low sodium diet and diuretic use are go ing to be crucial. Prognosis overall is poor, but on the other hand, she does not have any clear sym ptoms of encephalopathy, and has no significant ascites. We will follow along with further lab workup as detailed above. Please call any time with questions or concerns.
--- NOTE | 2018-02-10 05:25 | PDOC.FM ---
- Subjective Subjective: Patient feels tired this morning since I woke her up. She has no new complaints. Denies SOB. Insists on her burden remaining in place, but will not give reason why. Spoke with Dr. Quijano and is understanding of the blood tests to be done. Has no questions. - Objective MAR Reviewed: Yes Vital Signs & Weight: Vital Signs (12 hours) Temp Pulse Resp BP Pulse Ox 02/10/18 04:50 98.2 F 91 16 123/86 95 02/09/18 19:56 98.5 F 101 H 18 114/88 96 Weight Weight 75.16 kg I&O: 02/08/18 02/09/18 02/10/18 06:59 06:59 06:59 Intake Total 371 1200 Output Total 1375 1550 Balance -1004 -337 Result Diagrams: 02/10/18 06:02 02/10/18 06:02 <Fallon Jimenez - Last Filed: 02/10/18 08:56> - Objective Vital Signs & Weight: Vital Signs (12 hours) Temp Pulse Pulse Pulse Resp BP BP 02/10/18 16:00 97.3 F L 91 18 02/10/18 13:45 99 104 H 111/77 02/10/18 12:00 97.3 F L 95 18 02/10/18 10:42 91 119/88 02/10/18 08:00 97.6 F 102 H 16 02/10/18 04:50 98.2 F 91 16 BP BP Pulse Ox 02/10/18 16:00 115/83 98 02/10/18 13:45 119/79 02/10/18 12:00 119/88 98 02/10/18 10:42 02/10/18 08:00 128/95 H 98 02/10/18 04:50 123/86 95 Weight Weight 77.247 kg I&O: 02/09/18 02/10/18 02/11/18 06:59 06:59 06:59 Intake Total 371 1440 Output Total 1375 3725 550 Balance -1004 -2285 -550 Result Diagrams: 02/10/18 06:02 02/10/18 06:02 <Brittnee Logan - Last Filed: 02/10/18 16:53> Phys Exam - Physical Examination Constitutional: NAD Respiratory: no wheezing, no rales bilateral lower lobe crackles Cardiovascular: RRR, no significant murmur, no rub Gastrointestinal: soft, non-tender, no distention, positive bowel sounds 3+ pitting edema bilateraly LE, improved since yesterday Neurological: non-focal, moves all 4 limbs Skin: no rash, cap refill <2 seconds <Fallon Jimenez - Last Filed: 02/10/18 08:56> Dx/Plan (1) Cirrhosis of liver with ascites Code(s): K74.60 - UNSPECIFIED CIRRHOSIS OF LIVER; R18.8 - OTHER ASCITES Status : Acute (2) Thrombus Code(s): I82.90 - ACUTE EMBOLISM AND THROMBOSIS OF UNSPECIFIED VEIN Status: Acute (3) Hyperbilirubinemia Code(s): E80.6 - OTHER DISORDERS OF BILIRUBIN METABOLISM Status: Acute (4) Transaminitis Code(s): R74.0 - NONSPEC ELEV OF LEVELS OF TRANSAMNS & LACTIC ACID DEHYDRGNSE Status: Acute (5) Deep vein thrombosis (DVT) of distal vein of right lower extremity Code(s): I82.4Z1 - AC EMBLSM AND THOMBOS UNSP DEEP VEINS OF R DIST LOW EXTRM Status: Acute (6) CHF (congestive heart failure) Code(s): I50.9 - HEART FAILURE, UNSPECIFIED Status: Chronic - Plan Plan: 63 year old F with PMH of CHF presenting with SOB and admitted for CHF exacerbation. Acute on chronic HFrEF - BNP 9400, Echo 07/2017 showed EF 10-12%. Pt has hx of non compliance with meds nabivolol, lasix, lisinopril. AICD has been recommended in past, patient denied. - on telemetry, had 14 seconds of SVT. Otherwise in NSR - Echo still pending - Continue lisinopril, holding BB for now. Patient would benefit from spironolactone - Fluid restriction with strict I&O's and daily weights. Output 3725 over past 24 hrs. - Continue IV lasix diuresis - Rehab Specialist on importance of medication compliance - PT consulted - plan to discontinue burden today Hepatic cirrhosis, new diagnosis - RUQ US shouwed evidence for hepatic cirrhosis, small ascites, dilated hepatic veins - AST 92, ALT 96 on admission, downtrending - Hepatitis panel negative - Consulted GI, Dr. Quijano. Likely secondary to hepatic congestion, but labs pending to rule out other causes Elevated troponins, downtrending - 0.281, 0.287, 0.275, 0.219 - patient denies chest pain - on telemetry, will not trend further Hyperbilirubinemia, improving - 5.3 on admission, 4.7->3.6 Hyperkalemia, resolved - continue to monitor LV thrombus - On therapeutic lovenox - echo pending Hx of PE and DVT - Patient taking prophylactic lovenox at home though therapeutic dosing was recommended CAMERON, resolved - Cr. 1.04 on admission - continue to monitor HTN - Noncompliant with medications at home. BP stable DVT ppx: lovenox Code status: full Dispo: Continue diuresis <Fallon Jimenez - Last Filed: 02/10/18 08:56> Attending Addendum - Attending Addendum Date/Time: 02/10/18 4094 I personally evaluated the patient and discussed the management with Dr. Jimenez I agree with the History, Examination, Assessment and Plan documented above with any addition or exceptions noted below. We had an extended conversation with the patient this morning regarding her plan of care. She has diuresed well with IV lasix. We will transition to PO lasix this afternoon. Burden will be removed. Patient wants the burden to remain in place for the duration of the hospital stay. We discussed that this increases her risk of infection and that we want to begin transitioning her routine so that we know she will be successful on discharge. She is resistant to any of our explanations. Nurse and hospital nursing assistant were in the room for the discussion. She also was refusing her dose of therapeutic lovenox this morning. She has a history of left ventricle thrombus and should be on therapeutic lovenox bid. Pt was non-compliant with lovenox dosing at home, only wanting to take 40 mg of lovenox. I explained that we had another echo pending which should be done today and that until I know there is no thrombus, we will continue therapeutic lovenox. She again didn't agree with this and I explained that she can refuse the treatment but we will be trying to follow the correct guidelines for treatment. Dr. Bear read the echo this afternoon and again noted a thrombus in the left ventricle making therapeutic lovenox the correct dosing. PT is coming to evaluate the patient to see what her outpatient needs would be. <Brittnee Logan - Last Filed: 02/10/18 16:53>
[2018-02-10 06:43] LABS: Mean Corpuscular HGB CONC 31.8 g/dL (32.0-36.0); Mean Corpuscular Hemoglobin 28.1 pg (27.0-31.0); Mean Corpuscular Volume 88.3 fL (78.0-98.0); Mean Platelet Volume 9.8 fL (7.4-10.4); Platelet Count 139 thou/uL (130-400); Red Blood Cell (RBC) Count 4.63 mill/uL (4.20-5.40)
[2018-02-10 06:59] LABS: ALT (SGPT) 72 U/L (8-55); AST (SGOT) 46 U/L (5-34); Albumin 2.5 g/dL (3.4-4.8); Alkaline Phosphatase 78 U/L (40-150); Anion Gap 13 mmol/L (10-20); BUN (Urea Nitrogen) 41 mg/dL (9.8-20.1); Bilirubin, Total 3.6 mg/dL (0.2-1.2); Calc. Creatinine Clearance 88 mL/min (70-130); Calcium 8.5 mg/dL (7.8-10.44); Carbon Dioxide 24 mmol/L (23-31); Chloride 103 mmol/L (98-107); Estimated GFR-MDRD 72; Globulin 3.6 g/dL (2.4-3.5); Glucose 118 mg/dL (80-115); Iron 31 ug/dL (50-170); Iron Binding Capacity, Total 301 mcg/dL (265-497); Potassium 3.9 mmol/L (3.5-5.1); Protein, Total 6.1 g/dL (6.0-8.3); Sodium 136 mmol/L (136-145)
[2018-02-10] MEDS ORDERED: Sodium Chloride 0.9% 10 ML ONE (08:01)
[2018-02-10 08:40] LABS: Band 4 % (5-11); Lymphocytes 6 % (21-51); MDiff Complete? YES; Monocytes 2 % (0-10); Neutrophil 88 % (42-75); PLT Morphology Comment Appears Adequate; Polychromasia SLIGHT = 2-3 cells (100X) (0-2/hpf); Target Cells SLIGHT = 2-5 cells (100X) (0-1/hpf)
[2018-02-10] MEDS ORDERED: Furosemide 40 MG/4 ML VIAL SLOW IVP SCH (09:00)
[2018-02-10] MEDS ORDERED: Furosemide 40 MG TAB PO SCH (10:15)
[2018-02-10] MEDS: Lisinopril 2.5 MG TAB PO SCH (10:42)
[2018-02-10] MEDS: Furosemide 40 MG/4 ML VIAL SLOW IVP SCH (10:48)
[2018-02-10] MEDS: Enoxaparin Sodium 80 MG/0.8 ML SYRINGE SC SCH ×2 (11:04→21:03)
[2018-02-10] MEDS: Furosemide 20 MG TAB PO SCH ×3 (14:46→16:14)
--- NOTE | 2018-02-10 16:54 | PRG ---
DATE OF SERVICE: 02/10/2018 GI INPATIENT DAILY PROGRESS NOTE SUBJECTIVE: Mrs. Roper says she is breathing quite a bit easier today, mobility remains a problem. S he has evidently been quite uncooperative with recommendations of the primary service, refusing medic ations, not wanting her Mares catheter removed, etc. She reports no abdominal pain today. PHYSICAL EXAMINATION: VITAL SIGNS: Temperature 97.3, blood pressure 115/83, pulse 91, 98% oxygen saturation on room air. GENERAL: Chronically ill, sitting up comfortably. HEART: Regular rate and rhythm. LUNGS: Bibasilar crackles, no wheezing, no respiratory distress. ABDOMEN: Bowel sounds present, nontender to palpation. EXTREMITIES: 3+ bilateral lower extremity pitting edema persists. LABORATORY STUDIES: WBC 10.0, hemoglobin 13.0, platelets 139,000. Sodium 136, potassium 3.9, BUN 41 , creatinine 0.81. Iron studies are satisfactory with ferritin 149, iron 31, TIBC 301. Total biliru bin is 3.6, alkaline phosphatase 78, AST 46, ALT 72, albumin is 2.5. AFP is normal at 2.5. Total Ig G is within normal range at 1538. Again, serologies for hepatitis B and C are negative. Still await ing results of ceruloplasmin, antimitochondrial antibody, NORMA and ASMA. ASSESSMENT AND PLAN: 1. 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 2. Congestive hepatopathy. 3. Severe congestive heart failure. I updated the patient on lab results back so far. Still waiting on autoimmune markers, but clinicall y this really does not appear to represent autoimmune hepatitis. Her echocardiogram report is pendin g, but I do suspect this will show elevation in right-sided pressures. I really have no further work up or recommendations from a gastrointestinal standpoint at this time. She will need hepatic ultraso und and AFP every 6 months for HCC screening. I do not think she would tolerate EGD for variceal scr eening. I can follow up with her in my outpatient clinic in the next few weeks. GI will sign off for now, but please call back anytime with questions or concerns.
--- NOTE | 2018-02-11 05:43 | PDOC.FM ---
- Subjective Subjective: Ms. Roper was concerned about the cholesterol restriction in the food she is given. Discussed with patient the plan for her care at length and answered all of her questions. Palliative care to see patient. She voices resistance to this. She greatly appreciates the diapers. - Objective MAR Reviewed: Yes Vital Signs & Weight: Vital Signs (12 hours) Temp Pulse Resp BP Pulse Ox 02/11/18 04:00 98.1 F 89 18 120/86 94 L 02/10/18 20:51 98.1 F 113 H 16 117/89 96 Weight Weight 77.247 kg I&O: 02/09/18 02/10/18 02/11/18 06:59 06:59 06:59 Intake Total 371 1440 275 Output Total 1375 3725 1600 Balance -4051 -4191 -7086 Result Diagrams: 02/11/18 05:09 02/11/18 05:09 <Fallon Jimenez - Last Filed: 02/11/18 17:23> - Objective Vital Signs & Weight: Vital Signs (12 hours) Temp Pulse Resp BP BP Pulse Ox 02/12/18 11:42 97.9 F 103 H 18 121/73 96 02/12/18 08:43 98 126/99 H 02/12/18 08:00 97.4 F L 98 16 126/99 H 96 02/12/18 04:00 97.8 F 102 H 18 126/91 H 94 L Weight Weight 69.853 kg I&O: 02/11/18 02/12/18 02/13/18 06:59 06:59 06:59 Intake Total 395 1240 Output Total 2300 600 Balance -1905 640 Result Diagrams: 02/12/18 05:09 02/12/18 05:09 <Brittnee Logan - Last Filed: 02/12/18 15:48> Phys Exam - Physical Examination Constitutional: NAD Respiratory: no wheezing, no rhonchi crackles in lower lobes Cardiovascular: RRR, no significant murmur Gastrointestinal: soft, non-tender, no distention, positive bowel sounds Musculoskeletal: pulses present b/l LE pitting edema 3+, improving Neurological: non-focal, moves all 4 limbs Psychiatric: normal affect Skin: cap refill <2 seconds <Fallon Jimenez - Last Filed: 02/11/18 17:23> Dx/Plan (1) Cirrhosis of liver with ascites Code(s): K74.60 - UNSPECIFIED CIRRHOSIS OF LIVER; R18.8 - OTHER ASCITES Status : Acute (2) Thrombus Code(s): I82.90 - ACUTE EMBOLISM AND THROMBOSIS OF UNSPECIFIED VEIN Status: Acute (3) Hyperbilirubinemia Code(s): E80.6 - OTHER DISORDERS OF BILIRUBIN METABOLISM Status: Acute (4) Transaminitis Code(s): R74.0 - NONSPEC ELEV OF LEVELS OF TRANSAMNS & LACTIC ACID DEHYDRGNSE Status: Acute (5) Deep vein thrombosis (DVT) of distal vein of right lower extremity Code(s): I82.4Z1 - AC EMBLSM AND THOMBOS UNSP DEEP VEINS OF R DIST LOW EXTRM Status: Acute (6) CHF (congestive heart failure) Code(s): I50.9 - HEART FAILURE, UNSPECIFIED Status: Chronic - Plan Plan: 63 year old F with PMH of CHF presenting with SOB and admitted for CHF exacerbation. Acute on chronic HFrEF - BNP 9400, Echo 07/2017 showed EF 10-12%. Pt has hx of non compliance with meds nabivolol, lasix, lisinopril. AICD has been recommended in past, patient denied. - Echo 02/10/18 showed EF 10-15%, large thrombus, moderate to severe mitral and tricuspid regurgitation - on telemetry, had 8 beats of SVT. Otherwise in NSR - Continue lisinopril and spironolactone, holding BB for now, will restart - Fluid restriction with strict I&O's and daily weights. Output 2300 over past 24 hrs. - Continue PO diuresis - Software Engineering Manager on importance of medication compliance - PT consulted Hepatic cirrhosis, new diagnosis - RUQ US shouwed evidence for hepatic cirrhosis, small ascites, dilated hepatic veins - AST 92, ALT 96 on admission, downtrending - Hepatitis panel negative - Consulted GI, Dr. Quijano. Likely secondary to hepatic congestion. - Recommended hepatic ultrasound and AFP [id number] for HCC screening. May follow up outpatient. LV thrombus - seen on echo this hospitalization as well - On therapeutic lovenox Elevated troponins, downtrending - 0.281, 0.287, 0.275, 0.219 - patient denies chest pain - on telemetry Hyperbilirubinemia, improving - 5.3 on admission, 4.7->3.6 Hyperkalemia, resolved - continue to monitor Hx of PE and DVT - Patient taking prophylactic lovenox at home though therapeutic dosing was recommended CAMERON, resolved - Cr. 1.04 on admission - continue to monitor HTN - Noncompliant with medications at home. BP stable After rounds returned to further discuss with patient the plan and to answer her questions. Patient is unfunded and not eligible for rehab. Spoke with case management. Insurance help has been offered to patient, she has been uncooperative, refusing to offer personal financial information. Palliative care would be a good option, however Ms. Roper is uninterested in learning more about what can be offered. Discussed this with patient as well as the plan to discharge home tomorrow. DVT ppx: lovenox Code status: full Dispo: Plan for discharge home tomorrow <Fallon Jimenez - Last Filed: 02/11/18 17:23> Attending Addendum - Attending Addendum Date/Time: 02/11/18 1140 I personally evaluated the patient and discussed the management with Dr. Jimenez. I agree with the History, Examination, Assessment and Plan documented above with any addition or exceptions noted below. The patient is doing well on oral lasix. She continues to have good diuresis. She is on therapeutic lovenox which she will continue at home for the LV thrombus. Patient is upset that she is on a heart healthy diet and everything she tries to order the kitchen tells her it has too much cholesterol. We explained the purposes behind the heart healthy diet with her CHF and EF of 10% . She is not getting all meds like she would at home. Anticipate d/c on 02/12. This was explained to the patient. <Brittnee Logan - Last Filed: 02/12/18 15:48>
[2018-02-11 06:12] LABS: ALT (SGPT) 56 U/L (8-55); AST (SGOT) 37 U/L (5-34); Albumin 2.2 g/dL (3.4-4.8); Alkaline Phosphatase 75 U/L (40-150); Anion Gap 12 mmol/L (10-20); BUN (Urea Nitrogen) 28 mg/dL (9.8-20.1); Bilirubin, Total 3.3 mg/dL (0.2-1.2); Calc. Creatinine Clearance 99 mL/min (70-130); Calcium 8.1 mg/dL (7.8-10.44); Carbon Dioxide 26 mmol/L (23-31); Chloride 103 mmol/L (98-107); Estimated GFR-MDRD Greater than 90; Globulin 3.4 g/dL (2.4-3.5); Glucose 126 mg/dL (80-115); Potassium 3.7 mmol/L (3.5-5.1); Protein, Total 5.6 g/dL (6.0-8.3); Sodium 137 mmol/L (136-145)
[2018-02-11 06:21] LABS: Eosinophils 1 % (0-10); Hemoglobin 13.2 g/dL (12.0-16.0); Lymphocytes 11 % (21-51); MDiff Complete? YES; Mean Corpuscular HGB CONC 31.6 g/dL (32.0-36.0); Mean Corpuscular Hemoglobin 27.8 pg (27.0-31.0); Monocytes 3 % (0-10); Neutrophil 85 % (42-75); PLT Morphology Comment Appears Adequate; Platelet Count 148 thou/uL (130-400); RBC Distribution Width 20.2 % (11.5-14.5); Red Blood Cell (RBC) Count 4.76 mill/uL (4.20-5.40); White Blood Cell (WBC) Count 8.9 thou/uL (4.8-10.8)
[2018-02-11] MEDS: Enoxaparin Sodium 80 MG/0.8 ML SYRINGE SC SCH ×2 (09:12→20:02)
[2018-02-11] MEDS: Furosemide 20 MG TAB PO SCH ×3 (09:14→16:04)
[2018-02-11] MEDS: Lisinopril 2.5 MG TAB PO SCH (09:14)
[2018-02-11] MEDS: Spironolactone 25 MG TAB PO SCH (09:14)
[2018-02-11 13:41] LABS: ANA Symphony (Qualitative) Negative (Negative); EliA Vaculitis New Method **** NEW METHOD ****; Mitochondrial Ab 0.7 U/mL (<4 Negative); dsDNA IgG Antibody 1.1 IU/mL (<10 Negative)
--- NOTE | 2018-02-12 05:34 | PDOC.FM ---
- Subjective Subjective: Ms. Roper was sleepy this morning. Has had good urine output. Nurse said she slept well overnight. - Objective MAR Reviewed: Yes Vital Signs & Weight: Vital Signs (12 hours) Temp Pulse Resp BP Pulse Ox 02/11/18 20:01 97.5 F L 100 18 94 L 02/11/18 20:00 97.5 F L 100 18 122/98 H 18 L Weight Weight 71.123 kg I&O: 02/10/18 02/11/18 02/12/18 06:59 06:59 06:59 Intake Total 0641 156 1554 Output Total 3725 2300 600 Balance -2285 -1905 400 Result Diagrams: 02/12/18 05:09 02/12/18 05:09 <Fallon Jimenez - Last Filed: 02/12/18 08:19> - Objective Vital Signs & Weight: Weight Weight 69.853 kg I&O: 02/12/18 02/13/18 02/14/18 06:59 06:59 06:59 Intake Total 1240 250 Output Total 600 Balance 640 250 Result Diagrams: 02/12/18 05:09 02/12/18 05:09 <Brittnee Logan - Last Filed: 02/13/18 16:25> Phys Exam - Physical Examination Constitutional: NAD Respiratory: no wheezing, no rhonchi lower lobe crackles Cardiovascular: RRR Gastrointestinal: soft, non-tender, no distention, positive bowel sounds 3+ pitting edema LE b/l, improving Neurological: non-focal, moves all 4 limbs Skin: no rash, normal turgor, cap refill <2 seconds <Fallon Jimenez - Last Filed: 02/12/18 08:19> Dx/Plan (1) Cirrhosis of liver with ascites Code(s): K74.60 - UNSPECIFIED CIRRHOSIS OF LIVER; R18.8 - OTHER ASCITES Status : Acute (2) Thrombus Code(s): I82.90 - ACUTE EMBOLISM AND THROMBOSIS OF UNSPECIFIED VEIN Status: Acute (3) Hyperbilirubinemia Code(s): E80.6 - OTHER DISORDERS OF BILIRUBIN METABOLISM Status: Acute (4) Transaminitis Code(s): R74.0 - NONSPEC ELEV OF LEVELS OF TRANSAMNS & LACTIC ACID DEHYDRGNSE Status: Acute (5) Deep vein thrombosis (DVT) of distal vein of right lower extremity Code(s): I82.4Z1 - AC EMBLSM AND THOMBOS UNSP DEEP VEINS OF R DIST LOW EXTRM Status: Acute (6) CHF (congestive heart failure) Code(s): I50.9 - HEART FAILURE, UNSPECIFIED Status: Chronic - Plan Plan: 63 year old F with PMH of CHF presenting with SOB and admitted for CHF exacerbation. Acute on chronic HFrEF, improving - BNP 9400, Echo 07/2017 showed EF 10-12%. Pt has hx of non compliance with meds nabivolol, lasix, lisinopril. AICD has been recommended in past, patient denied. - Echo 02/10/18 showed EF 10-15%, large thrombus, moderate to severe mitral and tricuspid regurgitation - Continue lisinopril and spironolactone, will restart BB - Fluid restriction with strict I&O's and daily weights. Down 3lbs since yesterday. - Continue PO diuresis - Magnetic Doctor on importance of medication compliance - PT consulted Hepatic cirrhosis, new diagnosis - RUQ US showed evidence for hepatic cirrhosis, small ascites, dilated hepatic veins - AST 92, ALT 96 on admission, downtrending - Hepatitis panel negative - Consulted GI, Dr. Quijano. Likely secondary to hepatic congestion. - Recommended hepatic ultrasound and AFP [id number] for HCC screening. May follow up outpatient. LV thrombus - seen on echo this hospitalization as well - On therapeutic lovenox Elevated troponins, downtrending - 0.281, 0.287, 0.275, 0.219 - patient denies chest pain - on telemetry Hyperbilirubinemia, improving - 5.3 on admission, 4.7->3.6 Hyperkalemia, resolved - continue to monitor Hx of PE and DVT - Patient taking prophylactic lovenox at home though therapeutic dosing was recommended CAMERON, resolved - Cr. 1.04 on admission - continue to monitor HTN - Noncompliant with medications at home. BP stable DVT ppx: lovenox Code status: full Dispo: Discharge home today <Fallon Jimenez - Last Filed: 02/12/18 08:19> Attending Addendum - Attending Addendum Date/Time: 02/12/18 1967 I personally evaluated the patient and discussed the management with Dr. Jimenez. I agree with the History, Examination, Assessment and Plan documented above with any addition or exceptions noted below. See dictated note. Pt is clear to go home. Discharge plans and medications were discussed in detail with the patient. <Brittnee Logan - Last Filed: 02/13/18 16:25>
[2018-02-12 05:55] LABS: #Eosinphils 0.1 thou/uL (0.0-0.7); #Lymphocytes 0.9 thou/uL (1.20-3.40); #Monocytes 0.4 thou/uL (0.11-0.59); #Neutrophils 7.1 thou/uL (1.40-6.50); %Basophils 0.3 % (0.0-1.0); %Eosinophils 0.6 % (0.0-10.0); %Lymphocytes 10.4 % (21.0-51.0); %Monocytes 4.5 % (0.0-10.0); %Neutrophils 84.1 % (42.0-75.0); Hemoglobin 13.4 g/dL (12.0-16.0); Mean Corpuscular HGB CONC 31.7 g/dL (32.0-36.0); Mean Corpuscular Hemoglobin 28.3 pg (27.0-31.0); Mean Corpuscular Volume 89.2 fL (78.0-98.0); Mean Platelet Volume 10.2 fL (7.4-10.4); Platelet Count 179 thou/uL (130-400); RBC Distribution Width 20.7 % (11.5-14.5); Red Blood Cell (RBC) Count 4.76 mill/uL (4.20-5.40); White Blood Cell (WBC) Count 8.4 thou/uL (4.8-10.8)
[2018-02-12 06:09] LABS: ALT (SGPT) 52 U/L (8-55); AST (SGOT) 44 U/L (5-34); Albumin 2.3 g/dL (3.4-4.8); Alkaline Phosphatase 75 U/L (40-150); Anion Gap 13 mmol/L (10-20); BUN (Urea Nitrogen) 24 mg/dL (9.8-20.1); Bilirubin, Total 3.4 mg/dL (0.2-1.2); Calc. Creatinine Clearance 102 mL/min (70-130); Calcium 8.3 mg/dL (7.8-10.44); Carbon Dioxide 25 mmol/L (23-31); Chloride 103 mmol/L (98-107); Estimated GFR-MDRD Greater than 90; Globulin 3.5 g/dL (2.4-3.5); Glucose 104 mg/dL (80-115); Potassium 3.9 mmol/L (3.5-5.1); Protein, Total 5.8 g/dL (6.0-8.3); Sodium 137 mmol/L (136-145)
[2018-02-12] MEDS: Lisinopril 2.5 MG TAB PO SCH (08:43)
[2018-02-12] MEDS: Furosemide 20 MG TAB PO SCH ×2 (08:44→14:22)
[2018-02-12] MEDS: Spironolactone 25 MG TAB PO SCH (08:48)
[2018-02-12] MEDS: Enoxaparin Sodium 80 MG/0.8 ML SYRINGE SC SCH (08:50)
[2018-02-12 11:43] VITALS: BP 121/73; TEMP 97.9
--- NOTE | 2018-02-12 16:55 | PRG ---
DATE OF SERVICE: 02/12/2018 The patient is a 63-year-old female who was admitted for CHF exacerbation and new onset magalie gnosis of cirrhosis. The patient has been cleared by GI and should follow up with him as an outpatie nt. The patient has remained on IV Lasix for the past 2 days and continues to have good diuresis. S he remains on Lovenox for left ventricular thrombus, this is chronic. The patient will be discharged today. We explained this to the patient. We went over her medications and the reasons behind why t hey are important to take for her heart failure, multiple times with the nurse in the room as well. The patient continued to talk this morning about whether she is on the first, second, or 3rd generati on beta-mark. We tried to explain how beta blockers work and importance of them but she is still kept repeating are you putting me on a second generation or third generation beta-mark. She also noted that Norvasc was a third generation beta-mark and we explained that Norvasc is not a beta-bl ocker at all. We told her that we would give her a list of the medications that we recommend that e take and that we will submit medications to her pharmacy. We informed her that she can follow up w ith her physician as an outpatient and they can also make determinations on whether they want to adju st her medications anymore. At this time, the patient will be discharged home. She does not have fu nding and does not qualify for SNF stay or inpatient rehabilitation and any home health would have to be paid for out of pocket as she does not have insurance.
--- NOTE | 2018-02-12 20:31 | DIS ---
DATE OF ADMISSION: 02/08/2018 DATE OF DISCHARGE: 02/12/2018 RESIDENT: Fallon Jimenez D.O. ADMITTING ATTENDING: Dr. Maci Fofana. DISCHARGE ATTENDING: Dr. Logan. CONSULTATIONS: Dr. Samm HILL, Palliative Care. PROCEDURES: None. PRIMARY DISCHARGE DIAGNOSES: 1. Acute on chronic heart failure with reduced ejection fraction. 2. Hepatic cirrhosis. 3. Elevated troponins. 4. Hyperbilirubinemia. 5. Acute kidney injury. 6. Hyperkalemia. SECONDARY DIAGNOSES: 1. History of pulmonary embolus and deep venous thrombosis. 2. Hypertension. 3. Left ventricular thrombus. DISCHARGE MEDICATIONS: 1. Spironolactone 12.5 mg p.o. q.a.m.-w.m. 2. Metoprolol succinate 12.5 mg p.o. daily. 3. Lisinopril 2.5 mg p.o. daily. 4. Lasix 40 mg p.o. b.i.d. 5. Lovenox 70 mg subcutaneous b.i.d. DISCONTINUED MEDICATIONS: 1. Lasix 40 mg p.o. daily. 2. Lovenox 40 mg subcutaneously daily. HOSPITAL COURSE: The patient presented with chief complaint of shortness of breath and weakness. Her home health physician recommended that she come to the hospital for treatment of a CHF exacerbation. She had not taken her prescribed medications for several days as she did not want to get up to urinate frequently. The patient was started on IV Lasix with fluid restriction , daily weights, strict I's and O's. Appropriate home medications were restarted. The patient's liver enzymes and bilirubin were elevated. On abdominal ultrasound right upper quadrant, there was evidence for hepatic cirrhosis, small amount of ascites, sludge filling the gallbladder, with diffuse mural thickening of the gallbladder, dilated hepatic veins suggestion of CHF. GI, Dr. Quijano was consulted for evaluation of suspected cirrhosis. Evaluation for causes of cirrhosis, continued and all laboratory studies including hepatitis studies, autoimmune, etc. were all negative. Cirrhosis, likely due to congestive changes. The patient may follow up with Dr. Quijano in a couple of weeks. Patient additionally needs hepatic ultrasound and AFP every 6 months for hepatocellular carcinoma screening. The patient's symptoms improved throughout her hospitalization and she diuresed well. The patient was transitioned to oral medications and was ready for discharge. Discharge options were considered; however, due to patient's unfunded status and refusal to get private insurance, she will discharge home and can set up home health as she has in the past. Palliative Care was consulted and the patient refused to discuss goals of care with them. Importance of medication compliance was stressed to patient. Additionally, an echocardiogram was performed 02/10/2018 that showed ejection fraction of 10%-15% , large thrombus present along the anterior septal wall, moderate to severe mitral and tricuspid regurgitation, moderately elevated pulmonary artery pressure. DISPOSITION: Stable. DISCHARGE INSTRUCTIONS: 1. Location: Home. 2. Diet: Heart healthy, fluid restricted, low sodium. 3. Activity as tolerated. Follow up with PCP in 1 week. Follow up with Dr. Quijano GI in 2-3 weeks. NILAY
--- NOTE | 2018-02-13 20:52 | EKG ---
Test Reason : CHEST PAIN Blood Pressure : / mmHG Vent. Rate : 094 BPM Atrial Rate : 094 BPM P-R Int : 152 ms QRS Dur : 120 ms QT Int : 410 ms P-R-T Axes : 056 -44 104 degrees QTc Int : 512 ms Sinus rhythm with occasional Premature ventricular complexes Left atrial enlargement Left axis deviation Left ventricular hypertrophy with QRS widening Cannot rule out Septal infarct , age undetermined T wave abnormality, consider lateral ischemia Abnormal ECG Confirmed by SUN CARDENAS ([id number]), editor at large SNOIYA KELLY ([id number]) on 02/13/2018 8:51:32 PM Referred By: MAZIN Confirmed By:SUN CARDENAS
== END 2018-02-12 18:09 | disposition home or self-care (01) | DRG 292 ==
LOC: ERS 12:41 → 2SW 16:38 → 2NO 18:19 → OBSVTOIN 19:03
PROVIDERS: ADMIT Family Medicine; ATTEND Family Medicine
DX: I11.0 Hypertensive heart disease with heart failure (principal); N17.9 Acute kidney failure, unspecified; I24.0 Acute coronary thrombosis not resulting in myocardial infarction; R18.8 Other ascites; I50.23 Acute on chronic systolic (congestive) heart failure; K74.60 Unspecified cirrhosis of liver; E87.5 Hyperkalemia; Z86.718 Personal history of other venous thrombosis and embolism; Z91.14 Patient's other noncompliance with medication regimen; Z79.01 Long term (current) use of anticoagulants; Z53.29 Procedure and treatment not carried out because of patient's decision for other reasons; I42.9 Cardiomyopathy, unspecified
CPT/HCPCS: 36415; 36416; 70450; 71045; 76705; 80053; 82105; 82390; 82553; 82728; 82977; 83516; 83540; 83550; 83880; 84484; 85025; 85610; 85730; 86038; 86225; 86704; 86706; 86780; 86803; 87340; 87389; 93005; 93306; 93798; A4216; G8978-GP-CL; G8979-GP-CI; J1650; J1940